=== PATIENT | female | born 1940 | race Caucasian/White ===

== ENCOUNTER 2019-07-16 06:05 | Inpatient (IN) | payer OTHER, SELFPAY ==
[2019-07-09 12:44] VITALS: BMI 35.2
[2019-07-16] VITALS (33 sets, daily range): BP systolic 84–143; BP diastolic 32–71; PULSE 69–85; RESP 12–18; TEMP 35.6–36.4; O2SAT 89–100; BMI 35.2
--- NOTE | 2019-07-16 | DI.RAD.S_ITS ---
PROCEDURE: XR LUMBAR SPINE 2-3V INDICATIONS: L4-5, L5-S1 TLIF TECHNIQUE: 2 views of the lumbar spine were acquired. COMPARISON: [facility], CR, XR LUMBAR SPINE FLEXION EXTENSION, 02/27/2019, 8:41. FINDINGS: 2 intraoperative fluoroscopic views of the lumbar spine demonstrate posterior fixation of L4-S1 with posterior fixation rods and bilateral pedicle screws. There are also intervertebral spacers in the L4-5 and L5-S1 disc spaces. IMPRESSION: 1. Intraoperative fluoroscopic films demonstrate posterior fusion of L4-S1. Dictated by: Jens Person M.D. on 07/16/2019 at 13:32 Approved by: Jens Person M.D. on 07/16/2019 at 13:34
[2019-07-16] MEDS: LACTATED RINGERS 1,000 ML 42 ML IV ×3 (07:15→11:38)
--- NOTE | 2019-07-16 07:25 | PM.PREOP ---
Pre-operative Note Interval Note History & Physical reviewed/Exam performed by Physician: Yes Changes to H&P: Yes H&P completed within 30 days and has changed as indicated here:: Pain has switched over to L leg, will do left sided access
--- NOTE | 2019-07-16 07:26 | PM.OP.1 ---
Operative Date/Time/Diagnoses Date of procedure: 07/16/19 Time of procedure: 13:04 Pre-op diagnosis: Lumbar stenosis with radiculopathy Lumbar spondylolisthesis Lumbar scoliosis Post-op diagnosis: same Procedure & Clinicians Procedure: L3-4, L4-5, L5-S1 laminectomies L4-5, L5-S1 TLIF (post/post interbody fusion) with cages L4, L5, S1 screws Iliac crest bone graft aspirate Use of microscope Placement of epidural catheter Same procedure as scheduled: Yes Indications: 79 year old female with intractable pain from stenosis.They had failed conservative management and requested operative intervention. Risks and benefits of surgery were discussed and appropriate consents were obtained. Surgeon: Efra Gifford Transportation Refrigeration Technician: Kelli Mariee Anesthesia Type: General Operative Notes Findings: None Closure Type: primary Specimen(s): none sent Prosthetic devices, grafts, tissues, transplants, or devices: NuVasive MAS Reline screws Globus Rise cage Applied: catheter Estimated Blood Loss (mL): 30 Procedure in detail: The patient was brought to the operating room and intubated on the table. A time-out was performed. They were then rolled over to the well-padded Jordin table in the prone position. Preoperative antibiotics were given. The back was prepped and draped in the standard sterile fashion. Using fluoroscopy, a 6 cm longitudinal incision was made to the left of the midline. We used Bovie to come down to and split the lumbodorsal fascia. Using fluoroscopy and monitoring, we then percutaneously placed Jamshidi needles down the pedicles of L4, L5, and S1 on the left side. These were changed out to guidewires and then we tapped and then placed the NuVasive MAS Reline screw shanks. We then opened up the retractors and used Bovie to clear up the posterolateral gutter as well as medially along the lamina to the spinous processes. A bur was used to decorticate the transverse process of L5 and the sacral ala. We brought in the microscope. Using a combination of bur and Kerrison rongeurs, a laminectomy was performed from the left side at L5-S1. We cleared over past the midline. We had to do a near complete facetectomy to open up the foramen. This completed the laminectomy at L5-S1. We then began the TLIF prep. A complete facetectomy was performed on this side at L5-S1 We carefully cleaned up the remainder of the foramen until we could easily retract the exiting root as well as clearing medially below the dura and expose the disc space. The disc was prepped with bipolar and then an annulotomy was performed. We performed a diskectomy using a combination of paddles, manda, pituitaries, and curettes. We distracted the disc using a paddle and locked the retractor in an open position. We then filled the disc space with Osteocel bone graft. We then placed the Globus Rise cage under fluoroscopy and then filled this in with more bone graft. The distraction on the retractor was released to compress down. This completed the posterior interbody fusion portion of the TLIF at L5S1. We then went up to the L4-5 level. The retractor blades were switched over to this and we cleared out the gutter. The L4 transverse process was decorticated. We cleared medially along the lamina. We then used a combination of bur and Kerrisons to perform complete laminectomy at the L4-5 level. This was very tight centrally and we had to carefully depress the dura to reach across and clear out the opposite side. We also cleared out the neural foramen. Please note this was separate and distinct from a standard TLIF approach as there was extensive central canal decompression required, adding much more time and caution. This completed the laminectomy at L4-5. We then took off the remainder of the facet on the left side and exposed the disc space. The dura was carefully retracted and an annulotomy was performed. We again performed a complete diskectomy. We filled the disc space with bone graft and then placed another globus Rise cage under fluoroscopy and filled in with more bone graft. This completed the posterior interbody fusion portion of the TLIF at L4-5. We then went up to L3-4. The retractor was anchored on the L4 screw and opened up. We cleared out medially and then performed a laminectomy at L34 from this side, opening up the central canal and foramen and undercutting underneath the spinous process. She did have a slight curve at this level but we are able follow the dura until we completely opened up to L2-3. In the end, everything was checked with the ball probe and was open. The retractor was removed. We then placed the screw heads, reynaldo, and locked down the set screws. The wound was copiously irrigated. A small stab incision was made over the PSIS. We used a Jamshidi needle to aspirate several mL of bone marrow from the pelvis. This was mixed with the remaining Osteocel and combined with all of the locally harvested bone graft and placed in the posterolateral gutter for the posterior fusion of the TLIF at L45 and L5S1. An epidural catheter was then placed in the spinal canal by carefully depressing the dura and advancing it 4 cm cephalad under the remaining lamina. The muscle fascia was closed. The catheter was then injected with a solution containing 4 mL of 0.5% Marcaine, 1 mg Stadol, 4 mg Duramorph, and 100 mcg of fentanyl. This was injected without resistance and the catheter was pulled. We then went to the opposite side. Again using fluoroscopy, a 3 cm incision was made and Bovie was used to come down to split the fascia. Using neural monitoring and fluoroscopy, Jamshidi needles were advanced down the pedicles of L4, L5, and S1 on the right side. These were switched over guidewires, tapped, and screws placed. We then placed a reynaldo and locked the set screws on this side. The wound was irrigated. The fascia was closed. Vancomycin powder was placed in the wounds. The superficial and skin were closed. A sterile dressing was placed. The patient was then rolled over extubated and brought to recovery room without complications. Complications: none Post-operative Condition: stable Disposition: PACU Plan for aftercare: Inpatient. Up with PT.
[2019-07-16] MEDS: CEFAZOLIN 2 GM/100 ML FROZ.PIGGY IV ×3 (08:00→20:15)
--- NOTE | 2019-07-16 08:40 | SUR.OPER ---
Prone on spine table, head in foam head support, padded chest and pelvic supports, gel pad at knees, lower legs supported by pillows; nipples, genitalia and toes free of pressure, arms secured on foam padded arm boards at <90 degrees abduction. Tape over blanket at thigh secured to table.
[2019-07-16] MEDS: THROMBIN (RECOMBINANT) 5,000 UNIT VIAL 5000 UNIT TOP (08:47)
[2019-07-16] MEDS: VANCOMYCIN 1,000 MG VIAL 1000 MG TOP (08:48)
[2019-07-16] MEDS: SODIUM CHLORIDE 0.9% 1,000 ML, GENTAMICIN 80 MG IRR (08:48)
[2019-07-16] MEDS: ACETAMINOPHEN IV 1,000 MG/100 ML VIAL 400 MG IV (09:35)
--- NOTE | 2019-07-16 09:53 | SUR.OPER ---
fsbg [address] mccracken
[2019-07-16] MEDS: BUPIVACAINE 0.5% (PF) 4 ML, MORPHINE-PF 4 MG, BUTORPHANOL 1 MG, fentaNYL 100 MCG INJ (11:56)
--- NOTE | 2019-07-16 13:42 | SUR.PHASEI ---
1325: Resp. therapy at bedside to set up pt. with BIPAP, saturations stable at 95% with BiPAP and O2 @ 3L/min.
--- NOTE | 2019-07-16 13:55 | SUR.PHASEI ---
Pt. waking up a little more; BiPAP continue's with O2 maintaining saturation 97%. Pt. denies pain at this time, checking dermatone on pt., pt. shook head no when this author asked if she (pt) could feel this author touching the side of her body, however pt able to flex/ext feet with good strength.
--- NOTE | 2019-07-16 14:19 | SUR.PHASEI ---
Notified anesthesia regarding DBP @ 39, anesthesia asked about the MAP which is 64 (good); anesthesia mentioned that the BiPAP may be causing a decrease in the pts preload. Will continue to monitor with transfer to ICU in near future
--- NOTE | 2019-07-16 14:47 | SUR.PHASEI ---
Lab here at bedside in PACU for basic panel, stat order.
--- NOTE | 2019-07-16 14:58 | SUR.PHASEI ---
1455 - anesthesia notified of b/p 103/33 and MAP @ 55; anesthesia stated that the pt. may be transferred to ICU as planned, labs have been drawn, pt. stable for transfer.
[2019-07-16 15:14] LABS: BUN Creatinine Ratio 17.5 (6-22); Blood Urea Nitrogen 21 mg/dL (7-17); Calcium 9.4 mg/dL (8.4-10.2); Carbon Dioxide 28 mmol/L (22-32); Chloride 102 mmol/L (98-107); Estimated Glomerular Filt Rate 43.2 mL/min (>60); Glucose 151 mg/dL (80-110); HEMOLYSIS 21 (0-50); Potassium 4.6 mmol/L (3.4-5.1); Sodium 137 mmol/L (137-145)
--- NOTE | 2019-07-16 15:15 | SUR.PHASEI ---
pending transfer to ICU due to change of shift, waiting for receiving RN to call PACU for report.
[2019-07-16] MEDS: LACTATED RINGERS 1,000 ML 125 ML IV (16:00)
[2019-07-16] MEDS: CELECOXIB 200 MG CAPSULE 400 MG PO (16:58)
[2019-07-16] MEDS: GABAPENTIN 600 MG TABLET PO (20:29)
[2019-07-16] MEDS: SENNOSIDES 8.6 MG TABLET 17.2 MG PO (20:29)
[2019-07-16] MEDS: DOCUSATE 100 MG CAPSULE PO (20:29)
[2019-07-16] MEDS: SIMVASTATIN 40 MG TABLET PO (20:30)
[2019-07-16] MEDS: PRAMIPEXOLE 1 MG TABLET PO (20:30)
[2019-07-16] MEDS: LATANOPROST 0.005% OPHTH 2.5 ML 1 DROPS EYE-BOTH (20:30)
[2019-07-17] VITALS (8 sets, daily range): BP systolic 91–117; BP diastolic 42–55; PULSE 66–89; RESP 16–20; TEMP 36.1–37.3; O2SAT 95–98
[2019-07-17] MEDS: LACTATED RINGERS 1,000 ML 125 ML IV (00:32)
[2019-07-17] MEDS: CEFAZOLIN 2 GM/100 ML FROZ.PIGGY IV (04:55)
[2019-07-17 05:07] LABS: Hematocrit 33.3 % (36-46); Hemoglobin 10.8 g/dL (12.0-16.0)
[2019-07-17 05:16] LABS: BUN Creatinine Ratio 16.7 (6-22); Blood Urea Nitrogen 20 mg/dL (7-17); Calcium 8.9 mg/dL (8.4-10.2); Carbon Dioxide 31 mmol/L (22-32); Chloride 101 mmol/L (98-107); Estimated Glomerular Filt Rate 43.2 mL/min (>60); Glucose 117 mg/dL (80-110); HEMOLYSIS < 15 (0-50); Potassium 4.4 mmol/L (3.4-5.1); Sodium 137 mmol/L (137-145)
[2019-07-17] MEDS: LEVOTHYROXINE 88 MCG TABLET PO (06:36)
[2019-07-17] MEDS: HYDROCODONE/ACET 5/325 TABLET 1 TAB PO ×2 (06:36→08:42)
--- NOTE | 2019-07-17 06:44 | PC.NURSE ---
On initial assessment lumbar dressing with serosanguinous drainage with old leaking noted and reported by evening shift RN. Reassessment at 0600 noted to have additional leakage and saturation. Dressing reinforced. Tolerated CPAP overnight with 5L O2 bleed in. Upon removal to take oral medications pt Sp02 noted to be 87%. Placed on NC at 2L with improvement to 90%. Titratedd up to 3LNC with adequate Sp02 93-95%. Pt without complaint.
--- NOTE | 2019-07-17 08:05 | PM.PNPO.1 ---
Subjective Subjective Date Patient Seen: 07/17/19 Time Patient Seen: 08:05 Interval history: She is doing well. No leg pain. Pain is 7/10 and left lower back when she is laying on it. Her dressing had to be reinforced overnight. Exam Vital Signs (past 8 hours): - 07/17/19 04:00 07/17/19 07:32 Temperature 96.9 F L 98.6 F Pulse Rate 89 80 Respiratory Rate 16 19 Blood Pressure 117/46 L 98/55 L Pulse Oximetry 96 98 Oxygen Delivery Method CPAP Oxygen Flow Rate 4 Const Orientation: alert and oriented x3 Back/Spine/Pelvis Other: Moderate drainage has saturated through dressing. 5/5 motor both lower extremities Objective Labs Result Diagrams: 07/17/19 04:37 07/17/19 04:37 Labs: Laboratory Results - last 24 hr 07/16/19 07/17/19 07/17/19 14:54 04:37 04:37 Hgb 10.8 L Hct 33.3 L Sodium 137 137 Potassium 4.6 4.4 Chloride 102 101 Carbon Dioxide 28 31 BUN 21 H 20 H Creatinine 1.20 H 1.20 H Estimated GFR 43.2 L 43.2 L BUN/Creatinine Ratio 17.5 16.7 Glucose 151 H 117 H Calcium 9.4 8.9 Assessment & Plan Post-op Postoperative Procedures: Procedures Operation Date: 07/16/19 07:45 Actual Procedures Side Surgeon p L3-S1 laminectomies,L4-S1 instrumented fusion w/bone graft Efra Gifford MD She is doing well. Mobilize today with physical therapy. Anticipate discharge home in the next 1-2 days. Quality VTE Deep Vein Thrombosis/Pulmonary Embolism Present on Admission: No
--- NOTE | 2019-07-17 08:28 | CM.DANOTE ---
Addendum entered by Radha Hernandez LPN 07/17/19 14:03: PT and OT notes are not yet available. Will follow up and plan to meet with pt after more is known in these initial therapy evaluations. Original Note: Discharge Planning/Care Management DCP: assessment: Case received, EMR reviewed. Pt is an 79 year old female who admitted yesterday for a planned spinal surgery. Surgeon: Dr. Gifford Payer: Janes KIRAN PCP: Izabel Stapleton PT and OT will work with pt. Pt's indicated in her pre-op assessment that her hospital d/c plan is home with her significant other Adalberto Segal's supportive assist. P: discuss in Team Rounds and then meet with pt for introduction of self and role and continued assessment process. CM Discharge Assessment Start: 07/17/19 08:26 Freq: Status: Active Protocol: Document 07/17/19 08:27 ITV (Rec: 07/17/19 08:28 ITV [id number]) Discharge Planning Assessment Advance Directives? Yes Advance Directives on File No History Provided By Medical Record Prior Living Arrangements House Household Members significant other Review Status In Process Pre-Anesthesia Assessment Start: 07/09/19 12:44 Freq: Status: Complete Protocol: Document 07/09/19 12:44 [facility] (Rec: 07/09/19 13:32 CAB [id number]) Pre-Anesthesia Assessment Patient Information Reviewed Via Phone Assessment Assessment Completed With Patient Diagnostic Results BMP/CMP,CBC,EKG,Other Comment Outside labs/EKG scanned to record Primary Care Provider Izabel Stapleton Seen Specialist in Last 12 Months Yes Specialist Seen Orthopedist Comment PCP pre-op clearance 06/17/19 scanned to record Primary Language Greenlandic Lathe Tender Required No Height 160.02 cm Weight 90.265 kg Body Mass Index (BMI) 35.2 Hearing Ability Normal Visual Assist Magnifying Glass Dentition Type Partial- Upper & Lower,Full- Upper & Lower Barriers to Learning None Other Aids No Hx Anesthesia Reactions No: JACOB, has not worn CPAP due to smelling like mold Hx Family Anesthesia Reaction No Hx Malignant Hyperthermia No Hx Blood Transfusions No Anesthesia Review Requested No alcohol intake former Smoking Status Former smoker Tobacco type cigarettes how long ago did patient quit smoking Quit Substance Use Type does not use Pain Present Pain Reported Musculoskeletal Symptoms Abnormal Gait,Back Pain,Neck Pain,Numbness History of Falling (Recent or History of Yes ) Patient is completely paralyzed or No completely immobile Prosthesis or Orthotic Device Cane,Front Wheel Walker Mental Status Oriented to own ability Is patient on oxygen? No Hx Sleep Apnea Yes: Not wearing due to smelling like mold CPAP/BIPAP use prescribed not used Currently Taking a Beta Esequiel Yes: Atenolol Can You Climb a Flight of Stairs Without Yes SOB Hx Chest Pain No Hx SOB Yes: MERINO with longer ambulation, goes to [facility] Hx Syncope or Dizziness No Anti-Coagulant Therapy No Has a Jig Box Operator No Cardiac Testing Yes: Stress, Echo 06/05/19 @ [facility] Hx Pacemaker/ICD No Pacemaker Rep Required? No Diet Type At Home Regular dysphagia No Bladder Pattern Incontinent Urinary Catheter Present No Hx Urinary Self Catheterization No Diabetes Yes: Has not been checking blood sugars at home HgbA1C 6.6 Date 05/27/19 Comment Diet controlled Patient No Lactating No Hx Drug Resistant Organism No Presence of External or Internal Medical No Devices Have you traveled outside the [facility] in the last 30 days? Marital Status / Lives With significant other Prior Living Arrangements House Support System Friend(s),Significant Other Does the Patient Have Assistance After Yes Surgery Patient Discharge Plan Description Return Home Comment Pt advised 3-4 day length of stay per surgeon Feels Safe in Current Environment Yes Been Physically Hurt or Threatened By a No Person in Current Environment Do you have thoughts of harming yourself None or others? Are you currently considering suicide? No Do you have a plan to hurt yourself or No Plan others? Do You Have Any Spiritual Beliefs That No May Affect Your HC Choices? Do You Have Any Cultural Practices That No May Affect Your HC Choices? Comment Jeanmarie Who Can We Speak to About Patient's Care Family, friends Identifying Code for Release of Patient Declines to issue Information Health Care Proxy/Next of Kin Adalberto Morin) Health Care Proxy Emergency Contact Name Adalberto Morin) Emergency Contact Advance Directives? Yes Advance Directives on File No Requested Patient Bring Advanced Yes Directives DOS PAC Instructions Durable medical equipment, Medications to take/avoid, Nasal antibiotic,No ETOH/ petroleum product on skin DOS, NPO,Post-op transportation,Pre -surgical wash,Sturdy shoes/ comfortable clothes,Do not bring valuables and remove jewelry
[2019-07-17] MEDS: GABAPENTIN 300 MG CAPSULE PO (08:41)
[2019-07-17] MEDS: LOSARTAN 50 MG TABLET 100 MG PO (08:41)
[2019-07-17] MEDS: FLUoxetine 20 MG CAPSULE PO (08:41)
[2019-07-17] MEDS: DOCUSATE 100 MG CAPSULE PO ×2 (08:41→20:55)
[2019-07-17] MEDS: ATENOLOL 25 MG TABLET PO (08:44)
[2019-07-17] MEDS: CELECOXIB 200 MG CAPSULE PO ×2 (08:44→20:56)
[2019-07-17] MEDS: CHLORTHALIDONE 25 MG TABLET PO (08:44)
--- NOTE | 2019-07-17 12:35 | PT.IPTN ---
Current Diagnoses Spondylolisthesis, lumbar region (07/16/19) Spinal stenosis, lumbar region with neurogenic claudication (07/16/19) Surgery Performed Operation Date: 07/16/19 07:45 Actual Procedures p L3-S1 laminectomies,L4-S1 instrumented fusion w/bone graft - Efra Gifford MD Physical Therapy Treatment Note M2 PT-IP Current Condition Start: 07/17/19 14:40 Freq: NEEDED Status: Active Protocol: Document 07/17/19 09:00 [facility] (Rec: 07/17/19 15:08 [facility] [id number]) Physical Therapy Current Condition Current Condition Evaluation Date 07/17/19 Treatment Diagnosis L4-5, L5-S1 TLIF Precautions Lumbar Precautions Log Roll,No Twisting,Limit Bending,Lifting Restriction of 10 lbs,Gait Belt above Incisional Area M3 PT-IP Subjective Start: 07/17/19 14:40 Freq: NEEDED Status: Active Protocol: Document 07/17/19 12:35 [facility] (Rec: 07/17/19 15:57 [facility] [email or web address]) Subjective Physical Therapy Visit Type Type Treatment Note Visit Start Time 12:17 Visit Stop Time 12:33 Total Visit Minutes 16 Number of DATA ANALYSIS INTERN Visits 1 Physical Therapy Visit Comments Patient Comments pt willing to work with therapy. Therapy Pain Assessment Pain When Pain Assessed At Rest Pain Present Pain Present Pain Reported Location lower back Intensity 6 Scale Used Numeric (1 - 10) M4 PT-IP Mobility and Gait Start: 07/17/19 14:40 Freq: NEEDED Status: Active Protocol: Document 07/17/19 12:35 [facility] (Rec: 07/17/19 15:57 [facility]GD [email or web address]) PT-Transfer Assessment Sit to and From Stand Sit to and from Stand Contact Guard Assistance Equipment Transfer Assistive Device Gait Belt,Front Wheeled Walker Orthotic/Prosthetic Devices or Brace: No Transfers Transfer Destination Chair Transfer Ability Level of Assist Minimal Assistance,Use of Upper Extremities Gait Assessment Gait Gait Assistance Required: Contact Guard Assist Distance (Feet) 50 Assistive Devices Assistive Device Gait Belt,Front Wheeled Walker Orthotic/Prosthetic Devices or Brace: No Gait Deviations General Gait Pattern Antalgic,Decreased Stride Length,Flexed Trunk Factors Limiting Gait Function Factors Limiting Gait Function Decreased Strength,Pain M5 PT-IP Objective Assessments Start: 07/17/19 14:40 Freq: NEEDED Status: Active Protocol: Document 07/17/19 09:00 LR (Rec: 07/17/19 15:08 LR [email or web address]) Orientation Orientation/Cognition Level of Alertness Alert Strength Lower Extremity Strength Assessment Right Impaired M6 PT-IP Treatment Start: 07/17/19 14:40 Freq: NEEDED Status: Active Protocol: Document 07/17/19 12:35 [facility]GD (Rec: 07/17/19 15:57 [facility]GD [email or web address]) Physical Therapy Treatment Education Education Provided Precautions M7 PT-IP Assessment and Plan Start: 07/17/19 14:40 Freq: NEEDED Status: Active Protocol: Document 07/17/19 12:35 [facility] (Rec: 07/17/19 15:57 [facility] [email or web address]) PT Summary Assessment and Plan Summary Assessment Summary Pt able to progress gait distance. She is slow moving, but improved in her step length. Pt is progressing slowly with mobility. Frequency of Treatment Frequency Of Treatment Twice a Day Treatment Plan Physical Therapy Treatment Plan Bed Mobility Training,Transfer Training,Gait Training, Therapeutic Exercise,Balance Retraining,Post Op Education, Discharge Planning, Neuromuscular Re-ed,Manual Therapy Recommendations To Nursing Amount of Assist Needed 1 Person Assist Discharge Recommendations PT Discharge Recommendations Home with Assistance, Outpatient PT
--- NOTE | 2019-07-17 15:08 | PT.IIE ---
Addendum entered and electronically signed by Cammie Henderson, PT 07/18/19 18:05: Treatment completed at 900 AM. Note time incorrect. Original Note: Current Diagnoses Spondylolisthesis, lumbar region (07/16/19) Spinal stenosis, lumbar region with neurogenic claudication (07/16/19) Surgery Performed Operation Date: 07/16/19 07:45 Actual Procedures p L3-S1 laminectomies,L4-S1 instrumented fusion w/bone graft - Efra Gifford MD Surgical History (Last Updated 07/09/19 @ 12:55 by Brina Jenkins, YANI) H/O: hysterectomy (Acute) History of bilateral carpal tunnel release (Acute ~1989) S/P epidural steroid injection (Acute 01/24/19) Medical History (Last Updated 07/09/19 @ 13:35 by Brina Jenkins RN) BCC (basal cell carcinoma) (Acute) CAD (coronary artery disease) (Acute) Depression (Acute) Diabetes (Acute) Fibroids (Acute) Former smoker (Acute) GERD (gastroesophageal reflux disease) (Acute) Glaucoma (Acute) Hidradenitis suppurativa (Acute) HLD (hyperlipidemia) (Acute) HTN (hypertension) (Acute) Hypothyroid (Acute) Left wrist fracture (Acute ~2003) Low back pain (Acute) Lumbar stenosis (Acute) Mild renal insufficiency (Acute) Myocardial infarction (Acute) JACOB on CPAP (Acute) Osteoarthritis (Acute) Pansinusitis (Acute) Physical Therapy Inpatient Evaluation/Re-Eval M1 PT/OT-IP Prior Functional Status Start: 07/17/19 14:40 Freq: NEEDED Status: Active Protocol: Document 07/17/19 09:00 [facility] (Rec: 07/17/19 15:08 [facility] [id number]) Medical Review Prior Functional Status Medical History Reviewed Yes Diet/Fluid Consistency Regular Communication WNL Mobility and Gait indep without AD except for long distances would bring cane Activities of Daily Living and IADL's indep Social History Household Members significant other Living Arrangements House Number of Floors (Floors) One Floor Number of Stairs To Enter/Railing? 4 [place] with rail Home Environment Standard Height Toilet,Walk in Shower Home Equipment Four Wheel Walker,Straight Cane,Raised Toilet Seat w/ Armrests Employment Status Retired Additional Social History Comment still works and will only have one day off and then the weekend M2 PT-IP Current Condition Start: 07/17/19 14:40 Freq: NEEDED Status: Active Protocol: Document 07/17/19 09:00 [facility] (Rec: 07/17/19 15:08 [facility] [email or web address]) Physical Therapy Current Condition Current Condition Evaluation Date 07/17/19 Treatment Diagnosis L4-5, L5-S1 TLIF Precautions Lumbar Precautions Log Roll,No Twisting,Limit Bending,Lifting Restriction of 10 lbs,Gait Belt above Incisional Area M3 PT-IP Subjective Start: 07/17/19 14:40 Freq: NEEDED Status: Active Protocol: Document 07/17/19 09:00 [facility] (Rec: 07/17/19 15:08 [facility] [email or web address]) Subjective Physical Therapy Visit Type Type Initial Evaluation Visit Start Time 08:31 Visit Stop Time 08:58 Total Visit Minutes 27 Number of SEWING MACHINE REPAIRER HELPER Visits 0 Physical Therapy Visit Comments Patient Goals Pt plans to go home when ready Therapy Pain Assessment Pain When Pain Assessed At Rest Pain Present Pain Present Pain Reported Location lower back Intensity 7 Scale Used Numeric (1 - 10) Pain Management Techniques Re-positioning M4 PT-IP Mobility and Gait Start: 07/17/19 14:40 Freq: NEEDED Status: Active Protocol: Document 07/17/19 09:00 [facility] (Rec: 07/17/19 15:08 [facility] [email or web address]) PT-Bed Mobility Assessment Rolling Type of Rolling Roll to Left Level of Assist Contact Guard Assistance Supine to Sit Supine to Sit Contact Guard Assistance, Bedrails Scooting Scooting to Edge of Bed Contact Guard Assistance PT-Transfer Assessment Sit to and From Stand Sit to and from Stand Contact Guard Assistance Equipment Transfer Assistive Device Gait Belt,Front Wheeled Walker Orthotic/Prosthetic Devices or Brace: No Comments Mobility Comments Pt was able to do bed mobility with 1 rail and stand with cueing for UE placement. Gait Assessment Gait Gait Assistance Required: Contact Guard Assist Distance (Feet) 15 Assistive Devices Assistive Device Gait Belt,Front Wheeled Walker Orthotic/Prosthetic Devices or Brace: No Gait Deviations General Gait Pattern Antalgic,Decreased Stride Length,Flexed Trunk Factors Limiting Gait Function Factors Limiting Gait Function Decreased Strength,Pain Comments Gait Comments Pt amb with small steps and made her goal to walk to the door and back, but did not feel like she could walk further PT-Balance Assessment Sitting Balance and Reactions Static Sitting Balance Ability Normal Dynamic Sitting Balance Ability Normal Standing Balance and Reactions Static Standing Balance Ability Fair Dynamic Standing Balance Ability Fair Device Used FWW M5 PT-IP Objective Assessments Start: 07/17/19 14:40 Freq: NEEDED Status: Active Protocol: Document 07/17/19 09:00 [facility] (Rec: 07/17/19 15:08 [facility] [email or web address]) Orientation Orientation/Cognition Level of Alertness Alert Strength Lower Extremity Strength Assessment Right Impaired M6 PT-IP Treatment Start: 07/17/19 14:40 Freq: NEEDED Status: Active Protocol: Document 07/17/19 09:00 [facility] (Rec: 07/17/19 15:08 [facility] [email or web address]) Physical Therapy Treatment Education Education Provided Precautions,Safety M7 PT-IP Assessment and Plan Start: 07/17/19 14:40 Freq: NEEDED Status: Active Protocol: Document 07/17/19 09:00 [facility] (Rec: 07/17/19 15:08 [facility] [email or web address]) PT Summary Assessment and Plan Potential Rehabilitation Potential Excellent Status of Condition at Evaluation Evolving Summary Impairments Pain,ROM,Strength,Balance,Bed Mobility,Transfers,Gait, Activity Tolerance Assessment Summary Pt presents post op day one after TLIF with overall decreased mobility, but pt is very motivated and was able to do all activities today with only CGA and cueing. She was limited in activity tolerance today but made goals to progress her activity this PM. Pt is likely to be able to return home after further education and cont work with PT to progress her mobility Goals Bed Mobility Goal Independent Transfer Goal Independent Gait Goal Standby Assistance Gait Distance 150ft Other Goals up/down 4 stairs with rail SBA Days to Meet Goals 4 Frequency of Treatment Frequency Of Treatment Twice a Day Treatment Plan Physical Therapy Treatment Plan Bed Mobility Training,Transfer Training,Gait Training, Therapeutic Exercise,Balance Retraining,Post Op Education, Discharge Planning, Neuromuscular Re-ed,Manual Therapy Recommendations To Nursing Amount of Assist Needed 1 Person Assist Discharge Recommendations PT Discharge Recommendations Home with Assistance, Outpatient PT
[2019-07-17] MEDS: SODIUM CHLORIDE 0.9% FLUSH 10 ML IV ×2 (15:25→20:57)
[2019-07-17] MEDS: HYDROCODONE/ACET 5/325 TABLET 2 TAB PO ×2 (15:37→20:56)
--- NOTE | 2019-07-17 18:34 | OT.IP.EVAL ---
Current Diagnoses Spondylolisthesis, lumbar region (07/16/19) Spinal stenosis, lumbar region with neurogenic claudication (07/16/19) Surgery Performed Operation Date: 07/16/19 07:45 Actual Procedures p L3-S1 laminectomies,L4-S1 instrumented fusion w/bone graft - Efra Gifford MD Past Medical History (Last Updated 07/09/19 @ 13:35 by Brina Jenkins RN) BCC (basal cell carcinoma) (Acute) CAD (coronary artery disease) (Acute) Depression (Acute) Diabetes (Acute) Fibroids (Acute) Former smoker (Acute) GERD (gastroesophageal reflux disease) (Acute) Glaucoma (Acute) Hidradenitis suppurativa (Acute) HLD (hyperlipidemia) (Acute) HTN (hypertension) (Acute) Hypothyroid (Acute) Left wrist fracture (Acute ~2003) Low back pain (Acute) Lumbar stenosis (Acute) Mild renal insufficiency (Acute) Myocardial infarction (Acute) JACOB on CPAP (Acute) Osteoarthritis (Acute) Pansinusitis (Acute) Surgical History (Last Updated 07/09/19 @ 12:55 by Brina Jenkins RN) H/O: hysterectomy (Acute) History of bilateral carpal tunnel release (Acute ~1989) S/P epidural steroid injection (Acute 01/24/19) Occupational Therapy Inpatient Evaluation/Re-Eval M1 PT/OT-IP Prior Functional Status Start: 07/17/19 18:18 Freq: NEEDED Status: Active Protocol: Document 07/17/19 14:35 [facility] (Rec: 07/17/19 18:34 [facility] [id number]) Medical Review Prior Functional Status Medical History Reviewed Yes Diet/Fluid Consistency Regular Communication WNL Mobility and Gait indep without AD except for long distances would bring cane Activities of Daily Living and IADL's indep Social History Household Members significant other Living Arrangements House Number of Floors (Floors) One Floor Number of Stairs To Enter/Railing? 4 [place] with rail Home Environment Standard Height Toilet,Walk in Shower Home Equipment Four Wheel Walker,Straight Cane,Raised Toilet Seat w/ Armrests Employment Status Retired Additional Social History Comment still works and will only have one day off and then the weekend. Pt's significant other to orange picker machine operator shower chair, RTS/BSC, and bed rail, currently they do not have the equipment yet. M2 OT-IP Current Condition Start: 07/17/19 18:18 Freq: Status: Active Protocol: Document 07/17/19 14:35 [facility] (Rec: 07/17/19 18:34 [facility] [email or web address]) Occupational Therapy Current Condition Current Condition Evaluation Date 07/17/19 Treatment Diagnosis L4-5,L5-S1 TLIF, L3-4, L4-5, l5-S1 laminectomies, l4, l5, S1 screws Diagnosis Onset Date 07/16/19 Post Operative Precautions Lumbar Precautions Log Roll,No Twisting,Limit Bending,Lifting Restriction of 10 lbs,Gait Belt above Incisional Area Weight Bearing Status Weight Bearing Status Weight Bear as Tolerated M3 OT- IP Subjective and Pain Start: 07/17/19 18:18 Freq: Status: Active Protocol: Document 07/17/19 14:35 [facility] (Rec: 07/17/19 18:34 [facility] [email or web address]) OT- Subjective Occupational Therapy Visit Type Type Initial Evaluation Visit Start Time 14:35 Visit Stop Time 15:24 Total Visit Minutes 49 Occupational Therapy Visit Comments Patient Comments Pt agreeable to get up for OT eval. Pt's daughter present for OT eval. Patient/Caregiver Goals To go home Monday. OT Pain Assessment Pain When Pain Assessed At Rest Pain Present Pain Present Denied Pain M4 OT- IP ADL's Start: 07/17/19 18:18 Freq: Status: Active Protocol: Document 07/17/19 14:35 [facility] (Rec: 07/17/19 18:34 [facility] [email or web address]) OT ADL-Grooming Comments OT Grooming Comments Pt states did so prior. OT ADL-Dressing General Eval Lower Body Dressing Ability Maximum Assistance Areas Needing Assistance Socks Assistive Devices Dressing Assistive Devices Power And Recovery Superintendent,Sock Aid Comments OT Dressing Comments Educated pt for lower body dressing equipment and now able to do with SBA for socks. OT ADL-Toileting General Evaluation Toileting Ability Maximum Assistance Areas Needing Assistance Perform Perineal Hygiene Devices Toileting Assistive Devices Commode Comments OT Toileting Comments At this time as pt able to demonstrate able to wipe from the front but unable to wipe afterwards if having a bowel movement. Pt aware may need to get a toilet paper aid or someone will have to assist her. Educated on wearing pads and looses clothing or gowns to increase ease for toileting . M5 OT- IP IADL's Start: 07/17/19 18:18 Freq: Status: Active Protocol: Document 07/17/19 14:35 [facility] (Rec: 07/17/19 18:34 [facility] [email or web address]) OT-Instrumental Activities of Daily Living Home Safety Awareness Home Safety Comments Pt's significant other to be present to assist for all IADL needs. M6 OT- IP Functional Cognition Start: 07/17/19 18:18 Freq: Status: Active Protocol: Document 07/17/19 14:35 [facility] (Rec: 07/17/19 18:34 [facility] [email or web address]) Cognitive Factors Limiting Selfcare Function Cognitive Ability Level of Alertness Alert Patient Orientation Name,Place,Situation Attention Span Ability Capable of Focused Attention, Capable of Sustained Attention Ability to Follow Commands Able to Follow Multi-Step Commands Safety Awareness Decreased Ability to Apply Precautions,Underestimates Need for Assistance Problem Solving Ability Needs Assist to Identify Solutions Cognitive Comments Cognitive Assessment Comments Pt needing vc for safety for coming to sit to stand tends not to put weight onto her legs while trying to stand up. VC to have FWW close at all times. M7 OT- IP Mobility and Balance Start: 07/17/19 18:18 Freq: Status: Active Protocol: Document 07/17/19 14:35 [facility] (Rec: 07/17/19 18:34 [facility] [email or web address]) OT- Bed Mobility Assessment Sit to Supine Sit to Supine Assist Minimal Assistance Scooting Scooting to Edge of Bed Standby Assistance OT-Transfer Assessment Sit to and From Stand Sit to and from Stand Contact Guard Assistance, Minimal Assistance Transfers Transfer Ability Contact Guard Assistance Technique Transfer Destination Bed,Bedside Commode,Chair Transfer Technique Stand Step Pivot Devices Transfer Assistive Devices Gait Belt,Front Wheeled Walker Comments Mobility Comments Pt CGA to RANDALL to come to stand however from higher surface as pt not very tall. Pt able to scoot well to get back from the edge of the bed. CGA with FWW to walk to and from the bathroom. OT- Balance Assessment Sitting Balance and Reactions Static Sitting Balance Ability Normal Dynamic Sitting Balance Ability Good Standing Balance and Reactions Static Standing Balance Ability Good M8 OT- IP Objective Assessments Start: 07/17/19 18:18 Freq: Status: Active Protocol: Document 07/17/19 14:35 [facility] (Rec: 07/17/19 18:34 [facility] [email or web address]) OT Gross Range of Motion Upper Extremity Range of Motion Assessment Within Functional Limits OT Strength Upper Extremity Strength Assessment Within Functional Limits M9 OT- IP Assessment and Plan Start: 07/17/19 18:18 Freq: Status: Active Protocol: Document 07/17/19 14:35 [facility] (Rec: 07/17/19 18:34 [facility] [email or web address]) OT Summary Assessment and Plan Potential Rehabilitation Potential Good Analytic Complexity at Evaluation Low Summary OT Impairments Balance,Functional Mobility, Dressing,Toileting,Bathing, Toilet Transfers,Shower Transfers Progress Towards Goals Progressing Toward Goals Assessment Summary Pt low complexity and main barriers are steps, bed mobility , and being able to do hygiene after toileting and at this time will need assistance. Pt has supportive family that will be with her initially for a few days before having to be alone for part of the day. Recommend home with assist , family to come for caregiver training Monday as significant other getting the day off of work. Goals Grooming Goal Independent Dressing Goal Standby Assistance Toileting Goal Moderate Assistance Bathing Goal Minimal Assistance Toilet Transfer Goal Standby Assistance Shower Transfer Goal Contact Guard Assistance Patient/Caregiver Education Goal Demonstrate Post-Op Precautions,Caregiver Independent Assisting Patient Days to Meet Goals 3 Frequency of Treatment Frequency Of Treatment Once a Day Treatment Plan OT Treatment Plan ADL Training,Functional Cognition Training,Functional Mobility,Patient/Family Education,Discharge Planning Other Treatment Recommendations and Next Shower, practice LB dressing Treatment Focus Discharge Recommendations OT Discharge Recommendations Home with Assistance Home Equipment Needs shower chair, RTS/BSC, bed rail, toilet paper aid
--- NOTE | 2019-07-17 19:53 | PC.NURSE ---
1999- Pulse oximetry 90% on room air when lying in bed. 02 at 2l cannula brings it to 96%.
[2019-07-17] MEDS: LATANOPROST 0.005% OPHTH 2.5 ML 1 DROPS EYE-BOTH (20:55)
[2019-07-17] MEDS: PRAMIPEXOLE 1 MG TABLET PO (20:56)
[2019-07-17] MEDS: SIMVASTATIN 40 MG TABLET PO (20:56)
[2019-07-17] MEDS: SENNOSIDES 8.6 MG TABLET 17.2 MG PO (20:56)
[2019-07-17] MEDS: GABAPENTIN 600 MG TABLET PO (20:56)
[2019-07-17] MEDS: HYDROMORPHONE 1 MG INJ 0.5 MG IV (23:26)
[2019-07-18] VITALS (7 sets, daily range): BP systolic 71–111; BP diastolic 38–49; PULSE 67–81; RESP 14–18; TEMP 36.2–37.4; O2SAT 90–96
[2019-07-18] MEDS: HYDROCODONE/ACET 5/325 TABLET 2 TAB PO (03:24)
[2019-07-18] MEDS: SODIUM CHLORIDE 0.9% FLUSH 10 ML IV ×2 (08:29→21:05)
[2019-07-18] MEDS: GABAPENTIN 300 MG CAPSULE PO (08:29)
[2019-07-18] MEDS: CELECOXIB 200 MG CAPSULE PO ×2 (08:29→21:03)
[2019-07-18] MEDS: DOCUSATE 100 MG CAPSULE PO ×2 (08:29→21:03)
[2019-07-18] MEDS: FLUoxetine 20 MG CAPSULE PO (08:29)
--- NOTE | 2019-07-18 08:31 | CM.DPC ---
Addendum entered by Radha Hernandez LPN 07/18/19 09:58: Case discussed in Team Rounds with ortho ASHER Richard stating he had consulted Dr. Esposito and pt with some cardiac and perhaps respiratory issues. Will be follow as POC unfolds. Original Note: DCP: continued: Met with pt as planned after review of OT/PT notes from yesterday afternoon. Introduced self and role. Pt confirms her plan at d/c is home. Her 2 daughter's have been here while she is in the hospital but will not be staying with her after she goes home. Her partner Adalberto who does work (he drives a shuttle for a local car [employer] ([employer] is taking Monday off and the weekend but she says he is also available to check on her every couple of hours. He is planning on being here today for caregiver training with the therapists and also on Monday. Pt's PLF was functional independence with only occ sp cane for long distances. She is currently on , does not use this at home. Pt has needed DME at home including a partial rail for the bed that will assist her with correct body mechanics as she recovers. P: agreed to check in and follow prn for any needs that may arise. Pt does say she feels very certain she can manage well in the home setting.
--- NOTE | 2019-07-18 08:58 | DI.RAD.S_ITS ---
PROCEDURE: XR CHEST 2V INDICATIONS: cough, SOB, r/o pneumonia. Postop spine surgery TECHNIQUE: 2 views of the chest were acquired. COMPARISON: [facility], CR, XR CHEST 2 VIEWS, 05/27/2019, 7:38. FINDINGS: Surgical changes and devices: None. Lungs and pleura: Lungs are clear. No pleural effusions or pneumothorax. There is mild central venous congestion. Mediastinum: Mediastinal contours are normal. Heart at the upper limits of normal in size. Bones and chest wall: No suspicious bony abnormalities. Soft tissues appear unremarkable. IMPRESSION: Mild central venous congestion suggesting CHF or fluid overload. Please correlate with clinical data. Dictated by: Karie Grider MD, PhD on 07/18/2019 at 8:43 Approved by: Karie Grider MD, PhD on 07/18/2019 at 8:45
--- NOTE | 2019-07-18 09:09 | P.PN_ITS ---
Subjective Subjective Date Patient Seen: 07/18/19 Time Patient Seen: 09:09 Interval history: Hospital day 3, postop day 2 following L3-4 through L5-S1 laminectomy; L4-5, L5-S1 TLIF, cage, posterior screw fixation by Dr. Gifford. She has been orthopedically stable. Has had issue of hypotension. Atenolol was held last night. Patient has been coughing with productive green sputum. Denies shortness of breath. Does have decrease O2 sat on room air at 90%. O2 sat with 2 L nasal O2 96%. She has been having oxygen with her CPAP. Patient denies is oxygen use at home. No fever chills. She has been ambulating with PT. She does anticipate discharge home when stable. Exam Vital Signs (past 8 hours): - 07/18/19 03:34 07/18/19 08:00 Temperature 97.2 F L 99.4 F Pulse Rate 75 81 Respiratory Rate 18 16 Blood Pressure 99/46 L 104/39 L Pulse Oximetry 90 L 96 Oxygen Delivery Method BiPAP Oxygen Flow Rate 2 Narrative Exam Narrative: Alert, oriented no acute distress sitting in chair. Lungs. Mild rhonchi noted. Heart. Regular rhythm without murmur. Back. Dressing does have some drainage of serosanguineous fluid. Legs. No calf pain or swelling. Pulses symmetrical. Good sensation to touch to lower legs. Objective Labs Result Diagrams: 07/17/19 04:37 07/17/19 04:37 Assessment & Plan Post-op Postoperative Procedures: Procedures Operation Date: 07/16/19 07:45 Actual Procedures Side Surgeon p L3-S1 laminectomies,L4-S1 instrumented fusion w/bone graft Efra Gifford MD Plan: Will check CBC and chest x-ray this morning. I did talk with Dr. Esposito, hospitalist, and he will see the patient to evaluate following labs and chest x- ray. Will hold chlorthalidone and losartan this morning because of hypotension. Patient will continue to work with PT. Anticipate discharge home when she is stable. Quality VTE Deep Vein Thrombosis/Pulmonary Embolism Present on Admission: No
--- NOTE | 2019-07-18 09:30 | PT.IPTN ---
Current Diagnoses Spondylolisthesis, lumbar region (07/16/19) Spinal stenosis, lumbar region with neurogenic claudication (07/16/19) Surgery Performed Operation Date: 07/16/19 07:45 Actual Procedures p L3-S1 laminectomies,L4-S1 instrumented fusion w/bone graft - Efra Gifford MD Physical Therapy Treatment Note M2 PT-IP Current Condition Start: 07/17/19 14:40 Freq: NEEDED Status: Active Protocol: Document 07/17/19 09:00 [facility] (Rec: 07/17/19 15:08 [facility] [email or web address]) Physical Therapy Current Condition Current Condition Evaluation Date 07/17/19 Treatment Diagnosis L4-5, L5-S1 TLIF Precautions Lumbar Precautions Log Roll,No Twisting,Limit Bending,Lifting Restriction of 10 lbs,Gait Belt above Incisional Area M3 PT-IP Subjective Start: 07/17/19 14:40 Freq: NEEDED Status: Active Protocol: Document 07/18/19 09:30 [facility] (Rec: 07/18/19 10:13 [facility] [email or web address]) Subjective Physical Therapy Visit Type Type Treatment Note Visit Start Time 09:09 Visit Stop Time 09:32 Total Visit Minutes 23 Number of ROLLOUT MANAGER Visits 2 Physical Therapy Visit Comments Patient Comments Pt willing to work with [facility]. Therapy Pain Assessment Pain When Pain Assessed At Rest Pain Present Pain Present Pain Reported M4 PT-IP Mobility and Gait Start: 07/17/19 14:40 Freq: NEEDED Status: Active Protocol: Document 07/18/19 09:30 [facility] (Rec: 07/18/19 10:13 [facility] [email or web address]) PT-Transfer Assessment Sit to and From Stand Sit to and from Stand Contact Guard Assistance Equipment Transfer Assistive Device Gait Belt,Front Wheeled Walker Orthotic/Prosthetic Devices or Brace: No Transfers Transfer Destination Chair Transfer Ability Level of Assist Minimal Assistance,Use of Upper Extremities Comments Mobility Comments needed mod cues for hand placement. Gait Assessment Gait Gait Assistance Required: Contact Guard Assist Distance (Feet) 100 Assistive Devices Assistive Device Gait Belt,Front Wheeled Walker Orthotic/Prosthetic Devices or Brace: No Gait Deviations General Gait Pattern Antalgic,Decreased Stride Length,Decreased Feet Clearance,Step-to Gait Factors Limiting Gait Function Factors Limiting Gait Function Decreased Strength,Pain Comments Gait Comments needed cues for step length and standing posture. O2 with activity 90-92% on 2L. M5 PT-IP Objective Assessments Start: 07/17/19 14:40 Freq: NEEDED Status: Active Protocol: Document 07/17/19 09:00 [facility] (Rec: 07/17/19 15:08 [facility] [email or web address]) Orientation Orientation/Cognition Level of Alertness Alert Strength Lower Extremity Strength Assessment Right Impaired M6 PT-IP Treatment Start: 07/17/19 14:40 Freq: NEEDED Status: Active Protocol: Document 07/17/19 12:35 [facility] (Rec: 07/17/19 15:57 [facility] [email or web address]) Physical Therapy Treatment Education Education Provided Precautions M7 PT-IP Assessment and Plan Start: 07/17/19 14:40 Freq: NEEDED Status: Active Protocol: Document 07/18/19 09:30 [facility] (Rec: 07/18/19 10:13 [facility] [email or web address]) PT Summary Assessment and Plan Summary Assessment Summary Pt able to progress gait distance. She had a posterior lean with stand and gait posture. She had a LOB backwards with back up to chair. Pt need assist for safety and balance. Frequency of Treatment Frequency Of Treatment Twice a Day Recommendations To Nursing Amount of Assist Needed 1 Person Assist Discharge Recommendations PT Discharge Recommendations Home with Assistance, Outpatient PT
[2019-07-18 10:07] LABS: Add Manual Diff / Slide Review NO; Basophils Absolute Auto 0 /uL (0-100); Basophils Percent Auto 0.3 % (0-2); Eosinophils Absolute Auto 900 /uL (0-450); Eosinophils Percent Auto 7.9 % (2-4); Hemoglobin 10.2 g/dL (12.0-16.0); Lymphocytes Absolute Auto 1300 /uL (1100-4500); Lymphocytes Percent Auto 11.2 % (25-40); Mean Corpuscular Hemoglobin 29.1 PG (26-34); Mean Corpuscular Volume 90.8 fL (80-100); Monocytes Absolute Auto 900 /uL (0-900); Monocytes Percent Auto 7.8 % (3-14); Neutrophils Absolute Auto 8500 /uL (1500-7000); Neutrophils Percent Auto 72.8 % (50-75); Platelet Count 207 X10^3/uL (150-400); Red Blood Cell Count 3.52 X10^6/uL (4.0-5.2); Red Cell Distribution Width 14.9 % (11.6-14.8); White Blood Cell Count 11.7 X10^3/uL (4.5-11.0)
--- NOTE | 2019-07-18 10:11 | PC.NURSE ---
Addendum entered by Efrain Nicole R.N. 07/18/19 15:17: Pt unable to void this shift post patino catheter d/c. Bladder scan showed [address] Esposito. Instructs to wait and monitor. Addendum entered by Efrain Nicole R.N. 07/18/19 14:50: Dsg to back changed at 1330. Incisions well approximated with sutures. Cleansed skin emily incisions with SNS, patted dry, applied coversite dsg. Pt tolerated well. Addendum entered by Efrain Nicole R.N. 07/18/19 12:32: 1200- Pt with continued hypotension despite holding AM meds. Pt is AO x3 and denying symptoms of dizziness, lightheadedness, mental status change. Dr. Esposito notified and assessed pt at bedside. VORB to hold IV lasix for now. Checked manual cuff pressure with pt supine. BP 70/35. Dr. Esposito aware and instructed to continue to monitor. Original Note: Ortho PA rounded approx 0830. Reported trending low BPs, productive cough with green sputum, pt requiring 2L NC while awake r/t to RA SPO2 84%, requiring 2L bleed in with CPAP overnight, pt does not normally require O2, dsg to back loose with some scant sang drainage. Requested clarification regarding mult HTN meds due given low BP. Orders received to hold losartan and chlorthalidone, and to give atenolol; CBC and CXR; change dsg to coversite; and hospitalist consult. Spoke with Dr. Esposito. Reported assessment findings. Orders received to hold atenolol. Pt denies chest pain, dizziness, lightheadedness, and shortness of breath. Educated to use of IS. Pt provided return demo and verbalized understanding. Call light in easy reach.
--- NOTE | 2019-07-18 10:41 | P.CONS_ITS ---
History of Present Illness Consult details Date Patient Seen: 07/18/19 Time Patient Seen: 10:43 Chief complaint: Translaminar Interbody Fusion/:Laminotomy Reason for consult: Hypoxia Requesting provider: Emiliano Richard Narrative: Ms. Muleln is an 79-year-old female with past medical history of hypertension, CAD, hyperlipidemia, type 2 diabetes (diet controlled, A1c 6.6%), and JACOB who is now postoperative day 2 after L4-5 and L5-S1 lumbar fusion with L3-S1 laminectomies. This morning she developed worsening cough and was hypoxic on room air to 84% and required 2 L nasal cannula via her CPAP and Medicine was consulted. She denies any dyspnea on exertion, and currently feels fairly well except for her cough which has been productive of green sputum. The cough started this morning. She has had a cough for the past few weeks as well, however this improved prior to her surgery but reappeared today. She complains of eye bruising sensation on the left side of her chest after a lift was used to move her, and she denies any radiation of this pain into the neck, arm or jaw. The pain is worse with palpation as well. She denies any fevers, chills, nasal congestion, nausea, vomiting, abdominal pain, dysuria. She complains of low back pain, and slight neck pain while resting in bed. She ambulated with physical therapy this morning to her hospital room door, and did not feel short of breath however this was with minimal exertion. Initial evaluation included a CBC, her white blood cell count was 11.7 hemoglobin is fairly stable at 10.2. EKG was ordered and appears unchanged compared to prior study which is scanned into the chart. Chest x-ray shows bilateral congestion consistent with possible fluid overload. BNP was 200, Cr was 1.5 (from baseline of 1.1 - 1.2), and troponin is currently pending. [facility] Medical History (Updated 07/09/19 @ 13:35 by Brina Jenkins RN) BCC (basal cell carcinoma) (Acute) CAD (coronary artery disease) (Acute) Depression (Acute) Diabetes (Acute) Fibroids (Acute) Former smoker (Acute) GERD (gastroesophageal reflux disease) (Acute) Glaucoma (Acute) Hidradenitis suppurativa (Acute) HLD (hyperlipidemia) (Acute) HTN (hypertension) (Acute) Hypothyroid (Acute) Left wrist fracture (Acute ~2003) Low back pain (Acute) Lumbar stenosis (Acute) Mild renal insufficiency (Acute) Myocardial infarction (Acute) JACOB on CPAP (Acute) Osteoarthritis (Acute) Pansinusitis (Acute) Surgical History (Updated 07/09/19 @ 12:55 by Brina Jenkins RN) H/O: hysterectomy (Acute) History of bilateral carpal tunnel release (Acute ~1989) S/P epidural steroid injection (Acute 01/24/19) Social History household members: significant other Smoking Status: Former smoker alcohol intake: former Social History household members: significant other Smoking Status: Former smoker alcohol intake: former Meds Home Medications and Allergies Home Medications Medication Instructions Recorded Confirmed Type atenolol 25 mg PO BID 07/09/19 07/16/19 History chlorthalidone 25 mg PO DAILY 07/09/19 07/16/19 History fluoxetine 20 mg PO DAILY 07/09/19 07/16/19 History gabapentin 900 mg PO SEEINSTR 07/09/19 07/16/19 History latanoprost 1 drp EYE-BOTH BEDTIME 07/09/19 07/16/19 History levothyroxine 88 mcg PO DAILY 07/09/19 07/16/19 History losartan 100 mg PO DAILY 07/09/19 07/16/19 History pramipexole 1 mg PO BEDTIME 07/09/19 07/16/19 History simvastatin 40 mg PO BEDTIME 07/09/19 07/16/19 History celecoxib [Celebrex] 200 mg PO BID PRN #60 cap 07/17/19 Rx docusate sodium [Dulcolax Stool 100 mg PO BID PRN #40 cap NS 07/17/19 Rx Softener (dss)] hydrocodone-acetaminophen 1 tab PO Q4HR PRN #30 tab 07/17/19 Rx hydroxyzine pamoate 25 mg PO Q4HR PRN #20 cap 07/17/19 Rx Allergies Allergy/AdvReac Type Severity Reaction Status Date / Time adhesive tape Allergy Severe Rash if Verified 07/09/19 13:11 left on too long clonidine Allergy Mild Rash from Verified 07/09/19 13:11 patch cloxacillin Allergy Itching Verified 07/09/19 12:56 tapentadol Allergy Verified 07/09/19 12:56 ciprofloxacin AdvReac Nausea Verified 07/09/19 12:56 lisinopril AdvReac Cough Verified 07/09/19 12:56 Review of Systems Review of Systems Narrative: All other systems reviewed with the patient and are negative unless otherwise stated. Exam Vital Signs (past 8 hours): - 07/18/19 03:34 07/18/19 08:00 Temperature 97.2 F L 99.4 F Pulse Rate 75 81 Respiratory Rate 18 16 Blood Pressure 99/46 L 104/39 L Pulse Oximetry 90 L 96 Oxygen Delivery Method Room Air,Nasal Cannula Oxygen Flow Rate 2 Narrative Exam Narrative: GENERAL APPEARANCE: Well developed, well nourished, in no acute distress. SKIN: Inspection of the skin reveals no rashes, ulcerations or petechiae. HEENT: The sclerae were anicteric and conjunctivae were pink and moist. Extraocular movements were intact and pupils were equal, round with normal accommodation. External inspection of the ears and nose showed no scars, lesions, or masses. Lips, teeth, and gums showed normal mucosa. The oral mucosa, hard and soft palate, tongue and posterior pharynx were unremarkable. NECK: Supple and symmetric. There was no thyroid enlargement, and no tenderness, or masses were felt. CHEST: Normal AP diameter and normal contour without any kyphoscoliosis. Tenderness with palpation to the left anterior chest LUNGS: Auscultation of the lungs revealed decreased breath sounds bilateral lung bases however she did have poor effort. There were mild expiratory wheezes over the R middle lung hopkins that improved with cough. CARDIOVASCULAR: There was a regular rate and rhythm without any murmurs, gallops, rubs. Peripheral pulses were 2+ and symmetric. ABDOMEN: Soft and nontender with normal bowel sounds. No ascites was noted. MUSCULOSKELETAL: There was no tenderness or effusions noted. Muscle strength and tone were normal. EXTREMITIES: No cyanosis, clubbing. Minimal LE non-pitting edema. NEUROLOGIC: Alert and oriented x 3. Normal affect. Gait was normal. Strength is +5/5 in the Upper Extremities and Lower Extremities Bilaterally. Sensation to touch was normal. Objective Labs Result Diagrams: 07/18/19 10:00 07/18/19 10:42 Labs: Laboratory Results - last 24 hr 07/18/19 10:00 WBC 11.7 H RBC 3.52 L Hgb 10.2 L Hct 32.0 L MCV 90.8 MCH 29.1 MCHC 32.0 RDW 14.9 H Plt Count 207 Neut % (Auto) 72.8 Lymph % (Auto) 11.2 L [place] % (Auto) 7.8 Eos % (Auto) 7.9 H Baso % (Auto) 0.3 Neut # (Auto) 8500 H Lymph # (Auto) 1300 [place] # (Auto) 900 Eos # (Auto) 900 H Baso # (Auto) 0 Assessment & Plan Assessment & Plan narrative: Ms. Mullen is an 79-year-old female with past medical history of hypertension, CAD, hyperlipidemia, type 2 diabetes (diet controlled, A1c 6.6%), hypothyroidism and JACOB who is now postoperative day 2 after L4-5 and L5-S1 lumbar fusion with L3-S1 laminectomies. This morning she developed worsening cough and was hypoxic on room air to 84% and required 2 L nasal cannula via her CPAP and Medicine was consulted. 1. Acute hypoxemic respiratory failure -likely secondary to volume overload and diastolic dysfunction. According to her primary care notes which are scanned into the computer she previously had an echo in February of 2019 which was unremarkable. She had a stress test in May which showed an apical defect consistent with prior RI, this is consistent with her EKG findings as well. She is, given this history, high risk for postoperative RI and although there is chest pain that is reproducible and her EKG is unchanged from prior exams we will check a troponin level. Differential also includes atelectasis, less likely infectious etiology including pneumonia, less likely PE given clinical situation and 2 weeks of cough, obesity hypoventilation syndrome possibly worsened in setting of recent surgery. - limited TTE ordered, BNP indeterminant at 200. - will trial one dose of 20 mg of IV lasix to see if improvement in symptoms - troponin level pending - Check TSH given history of hypothyroidism and unknown control. - incentive spirometry - telemetry - O2 as needed to maintain 90% - if no improvement consider CTA 2. DWAYNE - Cr of 1.5 on CMP with baseline of around 1.1-1.2, possibly secondary to volume overload and congestion. - continue to monitor - treatment as noted above - see workup for respiratory failure as above 3. CAD, chronic - patient has previous RI documented on stress testing with a fixed apical defect noted earlier this year, no prior LHC. Previous TTE in feb, 2019 showed normal systolic and grade II diastolic dysfunction (pseudonormalization pattern). - continue simvastatin 40 mg - start ASA 81 mg as soon as able post operatively as recommended by PMD per chart review. 4. CHFpEF, possibly with acute exacerbation / decompensation - Previous TTE 02/2019 showing pseudonormalization pattern. Pending further workup to determine if there is current decompensation. - lasix as noted above - see evaluation noted in problem 1. 5. HTN, chronic - patient is currently low normal BP, medications were held this morning. - hold atenolol, consider changing to metoprolol pending limited TTE if EF is reduced. - hold losartan today, resume at lower dosing 25-50 mg if BP becomes elevated >140 consistently. 6. hypothyroidism, chronic - check TSH - Continue levothyroxine 88 mcg. DVT: per primary team Pain control per primary team Code: [employer] Spent With Patient Time with patient: Greater than 35 minutes
--- NOTE | 2019-07-18 11:00 | DI.ECHO.S_ITS ---
[place] [facility]---------+ [facility] +---------+ : : [address] [place] [place] : : : : [id number] : : : : Phone: [phone]+ Echocardiogram Report + + :Name: ANTONIA ALVARES Study Date: 07/18/2019 Height: 63 in : :[facility] Exam Location: [facility] Weight: 199 lb : : Gender: Female BSA: 1.9 m2 : :: 1940 Age: 79 yrs BP: 104/39 mmHg: :Reason For Study: HEART FAILURE : : Performed By: Chriss Lal : :Referring: MIRA DOUGLAS : + + Interpretation Summary Left ventricular wall thickness is mildly increased. Left ventricular ejection fraction is estimated to be 70 +/- 5%. There are no focal wall motion abnormalities. Procedure: A limited 2D echocardiogram was performed to assess for CHF. The study quality was technically adequate. Comparison is made with the echocardiogram of 03/07/19. The patient was in normal sinus rhythm during the exam. Left Ventricle: The left ventricle is normal in size. Left ventricular wall thickness is mildly increased. Left ventricular ejection fraction is estimated to be 70 +/- 5%. There are no focal wall motion abnormalities. Right Ventricle: The right ventricular systolic function is normal. Mitral Valve: There is moderate to severe mitral annular calcification. Great Vessels: The ascending aorta is normal in size. MMode/2D Measurements & Calculations LVIDd: 5.1 cm asc Aorta Diam: 3.0 cm LVIDs: 3.4 cm FS: 33.9 % IVSd: 1.1 cm LVPWd: 1.1 cm LV treadwell. diameter/BSA (cm/m^2): 2.6 LV sys. diameter/BSA (cm/m^2): 1.7 IVC diam: 2.6 cm Reading Physician:01:05 PM
[2019-07-18 11:06] LABS: Alanine Aminotransferase 22 IU/L (9-52); Albumin 3.2 g/dL (3.5-5.0); Albumin Globulin Ratio 1.1 (1.0-2.8); Alkaline Phosphatase 73 U/L (38-126); Aspartate Aminotransferase 111 IU/L (14-36); Bilirubin Total 0.4 mg/dL (0.2-1.3); Blood Urea Nitrogen 30 mg/dL (7-17); Calcium 8.6 mg/dL (8.4-10.2); Carbon Dioxide 30 mmol/L (22-32); Chloride 98 mmol/L (98-107); Estimated Glomerular Filt Rate 33.4 mL/min (>60); Globulin 2.9 g/dL (1.7-4.1); Glucose 138 mg/dL (80-110); HEMOLYSIS < 15 (0-50); Potassium 3.9 mmol/L (3.4-5.1); Sodium 135 mmol/L (137-145); Total Protein 6.1 g/dL (6.3-8.2)
[2019-07-18 11:14] LABS: B Type Natriuretic Peptide 200 (<100)
[2019-07-18 11:44] LABS: Troponin I 0.126 ng/mL (0.01-0.034)
--- NOTE | 2019-07-18 14:50 | PT.IPTN ---
Current Diagnoses Spondylolisthesis, lumbar region (07/16/19) Spinal stenosis, lumbar region with neurogenic claudication (07/16/19) Surgery Performed Operation Date: 07/16/19 07:45 Actual Procedures p L3-S1 laminectomies,L4-S1 instrumented fusion w/bone graft - Efra Gifford MD Physical Therapy Treatment Note M2 PT-IP Current Condition Start: 07/17/19 14:40 Freq: NEEDED Status: Active Protocol: Document 07/17/19 09:00 [facility] (Rec: 07/17/19 15:08 [facility] [id number]) Physical Therapy Current Condition Current Condition Evaluation Date 07/17/19 Treatment Diagnosis L4-5, L5-S1 TLIF Precautions Lumbar Precautions Log Roll,No Twisting,Limit Bending,Lifting Restriction of 10 lbs,Gait Belt above Incisional Area M3 PT-IP Subjective Start: 07/17/19 14:40 Freq: NEEDED Status: Active Protocol: Document 07/18/19 14:50 SP (Rec: 07/18/19 15:29 SP [id number]) Subjective Physical Therapy Visit Type Type Treatment Note Visit Start Time 14:25 Visit Stop Time 14:50 Total Visit Minutes 25 Notes Primary focus on stair mgt and gait. 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 Patient Goals Pt wants to try stair management for home navigation . M4 PT-IP Mobility and Gait Start: 07/17/19 14:40 Freq: NEEDED Status: Active Protocol: Document 07/18/19 14:50 SP (Rec: 07/18/19 15:29 SP [id number]) PT-Transfer Assessment Sit to and From Stand Sit to and from Stand Contact Guard Assistance,Use of Upper Extremities Equipment Transfer Assistive Device Front Wheeled Walker Orthotic/Prosthetic Devices or Brace: No Transfers Transfer Destination Wheelchair Transfer Technique Stand Pivot Transfer Ability Level of Assist Contact Guard Assistance,Use of Upper Extremities Comments Mobility Comments needed mod cues for hand placement and spacial awareness backing up to w/c. Gait Assessment Gait Gait Assistance Required: Contact Guard Assist Distance (Feet) 130 Assistive Devices Assistive Device Gait Belt,Front Wheeled Walker Orthotic/Prosthetic Devices or Brace: No Gait Deviations General Gait Pattern Antalgic,Decreased Stride Length,Decreased Feet Clearance,Step-to Gait Factors Limiting Gait Function Factors Limiting Gait Function Decreased Sensation,Decreased Strength,Incoordination,Pain, Poor Safety Awareness, Respiratory Distress Comments Gait Comments needed cues for step length and standing posture. O2 with activity 90-92% on 2L. Noted R knee buckling during gait requiring min A for wt shift onto LLE. Educated patient and family for fall prevention. Stair Climbing Assessment Evaluation Level of Assist On Stairs Minimal Assistance,2 Person Assistance Devices Stair Climbing Assistive Devices Left Railing,Right Railing Technique/Endurance Stair Climbing Direction Ascend and Descend Stair Climbing Technique Step to Step Number of Steps Climbed 3 Stair Climbing Set # Repetitions (reps) 1 Comments Stair Climbing Comments Educated patient on posture, requires strong BUE for WB on B HRs but has only L HR at home. M5 PT-IP Objective Assessments Start: 07/17/19 14:40 Freq: NEEDED Status: Active Protocol: Document 07/17/19 09:00 [facility] (Rec: 07/17/19 15:08 [facility] [email or web address]) Orientation Orientation/Cognition Level of Alertness Alert Strength Lower Extremity Strength Assessment Right Impaired M6 PT-IP Treatment Start: 07/17/19 14:40 Freq: NEEDED Status: Active Protocol: Document 07/17/19 12:35 [facility] (Rec: 07/17/19 15:57 [facility] [id number]) Physical Therapy Treatment Education Education Provided Precautions M7 PT-IP Assessment and Plan Start: 07/17/19 14:40 Freq: NEEDED Status: Active Protocol: Document 07/18/19 14:50 SP (Rec: 07/18/19 15:29 SP [id number]) PT Summary Assessment and Plan Summary Assessment Summary Pt able to progress gait distance. She has posterior lean with standing and gait posture, LOB x4 during transfers. Pt required support on balance and educated on safety awareness of obstacles during during transfers and gait. Frequency of Treatment Frequency Of Treatment Twice a Day Treatment Plan Physical Therapy Treatment Plan Bed Mobility Training,Transfer Training,Gait Training, Therapeutic Exercise,Balance Retraining,Post Op Education, Discharge Planning, Neuromuscular Re-ed,Manual Therapy Recommendations To Nursing Amount of Assist Needed 1 Person Assist Discharge Recommendations PT Discharge Recommendations Home with Assistance, Outpatient PT
--- NOTE | 2019-07-18 17:23 | OT.IP.TRT ---
Current Diagnoses Spondylolisthesis, lumbar region (07/16/19) Spinal stenosis, lumbar region with neurogenic claudication (07/16/19) Surgery Performed Operation Date: 07/16/19 07:45 Actual Procedures p L3-S1 laminectomies,L4-S1 instrumented fusion w/bone graft - Efra Gifford MD Occupational Therapy Treatment Note M2 OT-IP Current Condition Start: 07/17/19 18:18 Freq: Status: Active Protocol: Document 07/17/19 14:35 [facility] (Rec: 07/17/19 18:34 [facility] [id number]) Occupational Therapy Current Condition Current Condition Evaluation Date 07/17/19 Treatment Diagnosis L4-5,L5-S1 TLIF, L3-4, L4-5, l5-S1 laminectomies, l4, l5, S1 screws Diagnosis Onset Date 07/16/19 Post Operative Precautions Lumbar Precautions Log Roll,No Twisting,Limit Bending,Lifting Restriction of 10 lbs,Gait Belt above Incisional Area Weight Bearing Status Weight Bearing Status Weight Bear as Tolerated M3 OT- IP Subjective and Pain Start: 07/17/19 18:18 Freq: Status: Active Protocol: Document 07/18/19 16:35 [facility] (Rec: 07/18/19 17:23 [facility] [id number]) OT- Subjective Occupational Therapy Visit Type Type Treatment Note Visit Start Time 13:27 Visit Stop Time 14:15 Total Visit Minutes 48 Occupational Therapy Visit Comments Patient Comments Pt's and daughters in for caregiver training. Patient/Caregiver Goals Pt wants to go home. OT Pain Assessment Pain When Pain Assessed At Rest Pain Present Pain Present Denied Pain M4 OT- IP ADL's Start: 07/17/19 18:18 Freq: Status: Active Protocol: Document 07/18/19 16:35 [facility] (Rec: 07/18/19 17:23 [facility] [id number]) OT ADL-Toileting General Evaluation Toileting Ability Maximum Assistance Areas Needing Assistance Perform Perineal Hygiene Devices Toileting Assistive Devices Commode Comments OT Toileting Comments Pt will be needing assist for pericare needs after bowel movement. Pt not able to urinate , but able to assist her to get onto the toilet.with gait belt and CGA. OT ADL-Bathing Comments OT Bathing Comments Pt has been having low BP , however not symptomatic 91/44 and now on 2L of O2. Pt wanting to focus on family training for stairs and to shower later or tomorrow. M5 OT- IP IADL's Start: 07/17/19 18:18 Freq: Status: Active Protocol: Document 07/17/19 14:35 [facility] (Rec: 07/17/19 18:34 [facility] [id number]) OT-Instrumental Activities of Daily Living Home Safety Awareness Home Safety Comments Pt's significant other to be present to assist for all IADL needs. M6 OT- IP Functional Cognition Start: 07/17/19 18:18 Freq: Status: Active Protocol: Document 07/18/19 16:35 [facility] (Rec: 07/18/19 17:23 [facility] [id number]) Cognitive Factors Limiting Selfcare Function Cognitive Ability Level of Alertness Alert Patient Orientation Name,Place,Situation Attention Span Ability Capable of Focused Attention, Capable of Sustained Attention Ability to Follow Commands Able to Follow Multi-Step Commands Safety Awareness Decreased Ability to Apply Precautions,Underestimates Need for Assistance Problem Solving Ability Needs Assist to Identify Solutions Cognitive Comments Cognitive Assessment Comments Pt has decreased safety awareness in conjunction of decreased ability to feel her feet. Pt not aware that her weight is on the back of her heels and having loss of balance while standing at the toilet and needing to prevent from falling. M7 OT- IP Mobility and Balance Start: 07/17/19 18:18 Freq: Status: Active Protocol: Document 07/18/19 16:35 [facility] (Rec: 07/18/19 17:23 [facility] [id number]) OT- Bed Mobility Assessment Rolling Type of Rolling Roll to Left Level of Assistance Standby Assistance Supine to Sit Supine to Sit Assist Standby Assistance,Bedrails Sit to Supine Sit to Supine Assist Standby Assistance,Bedrails Scooting Scooting to Edge of Bed Standby Assistance,Bedrails OT-Transfer Assessment Sit to and From Stand Sit to and from Stand Standby Assistance,Contact Guard Assistance,1 Person Assistance Transfers Transfer Ability Standby Assistance,Contact Guard Assistance,Moderate Assistance,1 Person Assistance Technique Transfer Destination Bed,Chair,Toilet Transfer Technique Stand Step Pivot Devices Transfer Assistive Devices Gait Belt,Front Wheeled Walker Comments Mobility Comments Pt able to do bed mobilty with SBA and use of bed rail as needed with good safety. Pt even able to get back into high bed like at home with SBA . Pt had 3 loss of balance while up on her feet, and tends to have weight on the back of her heels and not aware of change in balance and therefore loss of balance and needing therapist MODA to prevent her from falling backwards. OT- Balance Assessment Sitting Balance and Reactions Static Sitting Balance Ability Normal Dynamic Sitting Balance Ability Good Standing Balance and Reactions Static Standing Balance Ability Fair Dynamic Standing Balance Ability Poor Comments Other Balance Tests/Deviations/Treatment Pt's balance is poor and decreased awareness to correct her balance due to decreased sensation/proprioceptors in her ankles/feet to be able to adjust to prevent from falling. Pt is a high fall risk. Pt states has had several falls in the past 3 months. M8 OT- IP Objective Assessments Start: 07/17/19 18:18 Freq: Status: Active Protocol: Document 07/17/19 14:35 [facility] (Rec: 07/17/19 18:34 [facility] [id number]) OT Gross Range of Motion Upper Extremity Range of Motion Assessment Within Functional Limits OT Strength Upper Extremity Strength Assessment Within Functional Limits M9 OT- IP Assessment and Plan Start: 07/17/19 18:18 Freq: Status: Active Protocol: Document 07/18/19 16:35 [facility] (Rec: 07/18/19 17:23 [facility] [id number]) OT Summary Assessment and Plan Potential Rehabilitation Potential Good Analytic Complexity at Evaluation Low Summary OT Impairments Balance,Functional Mobility, Dressing,Toileting,Bathing, Toilet Transfers,Shower Transfers Progress Towards Goals Progressing Toward Goals,Slow Progress due to Activity Tolerance Assessment Summary Pt now on 2l of O2 and with exertion of walking to the bathroom , O2 drops to 88%,on RA pt drops to 84%. If needing O2 at home would further increase her risk for falls. Pt would benefit from 24/7 assist at home otherwise would benefit from skilled rehab to help improve overall endurance and balance strategies to help prevent from falling. Goals Grooming Goal Independent Dressing Goal Standby Assistance Toileting Goal Moderate Assistance Bathing Goal Minimal Assistance Toilet Transfer Goal Standby Assistance Shower Transfer Goal Contact Guard Assistance Patient/Caregiver Education Goal Demonstrate Post-Op Precautions,Caregiver Independent Assisting Patient Days to Meet Goals 3 Frequency of Treatment Frequency Of Treatment Once a Day Treatment Plan OT Treatment Plan ADL Training,Functional Cognition Training,Functional Mobility,Patient/Family Education,Discharge Planning Other Treatment Recommendations and Next Shower, practice LB dressing Treatment Focus Discharge Recommendations OT Discharge Recommendations Home with 24/7 Assist,SNF Rehab Other Discharge Recommendations Recommend Skilled rehab, otherwise 24/7 assist. Pt's not available as he works. Home Equipment Needs shower chair, RTS/BSC, bed rail, toilet paper aid
[2019-07-18 18:19] LABS: Troponin I 0.095 ng/mL (0.01-0.034)
--- NOTE | 2019-07-18 18:27 | PC.NURSE ---
Addendum entered by Kendy Nichole R.N. 07/18/19 22:15: 2110 - Pt reports she is not yet ready to sleep. Declining C-pap at this time. Discussion of home machine pt reports smells of mold. RT notified to assist pt in contacting servicing agency for new mask and machine evaluation. Pt reports pain 3 of 10, requesting 1 tab hydrocodone. Able to take HS meds without difficulty. Positioned for comfort. SCD's in place. Call light in reach. Bed alarm on. Original Note: 1800 - Pt up to the bathroom. 1 unmeasured void. Ambulate in halls. Mildly unsteady gait. Pt denies pain. O2 sats on RA 88%, replaced NC on 2L. Productive cough. Reinforced IS use. Positioned for comfort. Call light in reach. Supportive family at bedside.
[2019-07-18] MEDS: GABAPENTIN 600 MG TABLET PO (21:03)
[2019-07-18] MEDS: LEVOTHYROXINE 88 MCG TABLET PO (21:04)
[2019-07-18] MEDS: HYDROCODONE/ACET 5/325 TABLET 1 TAB PO (21:04)
[2019-07-18] MEDS: PRAMIPEXOLE 1 MG TABLET PO (21:04)
[2019-07-18] MEDS: LATANOPROST 0.005% OPHTH 2.5 ML 1 DROPS EYE-BOTH (21:05)
[2019-07-18] MEDS: SIMVASTATIN 40 MG TABLET PO (21:06)
[2019-07-18] MEDS: SENNOSIDES 8.6 MG TABLET 17.2 MG PO (21:06)
[2019-07-19 00:27] VITALS: BP 116/55; PULSE 73; RESP 16; TEMP 36.6; O2SAT 92
[2019-07-19 04:00] VITALS: BP 113/60; PULSE 73; RESP 16; TEMP 36.4; O2SAT 96
[2019-07-19 04:59] LABS: Add Manual Diff / Slide Review NO; Basophils Absolute Auto 100 /uL (0-100); Basophils Percent Auto 0.8 % (0-2); Eosinophils Absolute Auto 1000 /uL (0-450); Eosinophils Percent Auto 9.6 % (2-4); Hematocrit 29.3 % (36-46); Hemoglobin 9.8 g/dL (12.0-16.0); Lymphocytes Absolute Auto 1600 /uL (1100-4500); Lymphocytes Percent Auto 15.6 % (25-40); Mean Corpuscular HGB Conc 33.3 % (30-36); Mean Corpuscular Volume 90.1 fL (80-100); Monocytes Absolute Auto 800 /uL (0-900); Monocytes Percent Auto 7.7 % (3-14); Neutrophils Absolute Auto 6800 /uL (1500-7000); Neutrophils Percent Auto 66.3 % (50-75); Platelet Count 191 X10^3/uL (150-400); Red Blood Cell Count 3.26 X10^6/uL (4.0-5.2); White Blood Cell Count 10.3 X10^3/uL (4.5-11.0)
[2019-07-19 05:11] LABS: BUN Creatinine Ratio 21.7 (6-22); Blood Urea Nitrogen 26 mg/dL (7-17); Calcium 9.2 mg/dL (8.4-10.2); Carbon Dioxide 32 mmol/L (22-32); Chloride 101 mmol/L (98-107); Estimated Glomerular Filt Rate 43.2 mL/min (>60); Glucose 109 mg/dL (80-110); HEMOLYSIS < 15 (0-50); Potassium 4.5 mmol/L (3.4-5.1); Sodium 137 mmol/L (137-145)
[2019-07-19] MEDS: HYDROCODONE/ACET 5/325 TABLET 2 TAB PO (05:40)
--- NOTE | 2019-07-19 05:48 | PC.NURSE ---
Dressing on back saturated and draining into briefs, changed.
[2019-07-19 05:56] LABS: TSH w/ Reflex to FT4 1.56 uIU/mL (0.47-4.68)
--- NOTE | 2019-07-19 07:28 | P.PN_ITS ---
Subjective Subjective Date Patient Seen: 07/19/19 Time Patient Seen: 07:29 Interval history: Hospital day 4, postop day 3 following L3-4 through L5-S1 laminectomy and L4-5, L5-S1 TLIF. Patient is orthopedically stable. She did help cough and hypoxia and hypotension during the past 48 hours. She did have hospitalist consult done by Dr. Esposito yesterday. Echocardiogram done. Did have mild elevation of troponin and BNP. Cardiac medications were held. Patient did work with PT and OT yesterday. PT fell patient was stable for home. OT felt patient may need further assist. She did require dressing to be changed during the night because of saturation and mild drainage from the a upper left incision. Vital stable. Exam Vital Signs (past 8 hours): - 07/19/19 00:27 07/19/19 04:00 Temperature 97.9 F 97.6 F Pulse Rate 73 73 Respiratory Rate 16 16 Blood Pressure 116/55 L 113/60 Pulse Oximetry 92 96 Fraction of Inspired Oxygen 28 Oxygen Delivery Method BiPAP Oxygen Flow Rate 2 Narrative Exam Narrative: Patient is lying in bed sleeping but is easily arousable. Using CPAP with O2 bleed. Back. Dressing to lumbar area is dry without drainage or inflammation. Legs. No calf pain or swelling. Pulses symmetrical. Objective Labs Result Diagrams: 07/19/19 04:35 07/19/19 04:35 Labs: Laboratory Results - last 24 hr 07/18/19 07/18/19 07/18/19 10:00 10:42 10:42 WBC 11.7 H RBC 3.52 L Hgb 10.2 L Hct 32.0 L MCV 90.8 MCH 29.1 MCHC 32.0 RDW 14.9 H Plt Count 207 Neut % (Auto) 72.8 Lymph % (Auto) 11.2 L [place] % (Auto) 7.8 Eos % (Auto) 7.9 H Baso % (Auto) 0.3 Neut # (Auto) 8500 H Lymph # (Auto) 1300 [place] # (Auto) 900 Eos # (Auto) 900 H Baso # (Auto) 0 Sodium 135 L Potassium 3.9 Chloride 98 Carbon Dioxide 30 BUN 30 H Creatinine 1.50 H Estimated GFR 33.4 L BUN/Creatinine Ratio 20.0 Glucose 138 H Calcium 8.6 Magnesium Total Bilirubin 0.4 AST 111 H ALT 22 Alkaline Phosphatase 73 Troponin I 0.126 H* B-Natriuretic Peptide 200 H Total Protein 6.1 L Albumin 3.2 L Globulin 2.9 Albumin/Globulin Ratio 1.1 TSH 07/18/19 07/19/19 07/19/19 17:45 04:35 04:35 WBC 10.3 RBC 3.26 L Hgb 9.8 L Hct 29.3 L MCV 90.1 MCH 30.0 MCHC 33.3 RDW 15.0 H Plt Count 191 Neut % (Auto) 66.3 Lymph % (Auto) 15.6 L [place] % (Auto) 7.7 Eos % (Auto) 9.6 H Baso % (Auto) 0.8 Neut # (Auto) 6800 Lymph # (Auto) 1600 [place] # (Auto) 800 Eos # (Auto) 1000 H Baso # (Auto) 100 Sodium 137 Potassium 4.5 Chloride 101 Carbon Dioxide 32 BUN 26 H Creatinine 1.20 H Estimated GFR 43.2 L BUN/Creatinine Ratio 21.7 Glucose 109 Calcium 9.2 Magnesium 2.0 Total Bilirubin AST ALT Alkaline Phosphatase Troponin I 0.095 H B-Natriuretic Peptide Total Protein Albumin Globulin Albumin/Globulin Ratio TSH 07/19/19 04:35 WBC RBC Hgb Hct MCV MCH MCHC RDW Plt Count Neut % (Auto) Lymph % (Auto) [place] % (Auto) Eos % (Auto) Baso % (Auto) Neut # (Auto) Lymph # (Auto) [place] # (Auto) Eos # (Auto) Baso # (Auto) Sodium Potassium Chloride Carbon Dioxide BUN Creatinine Estimated GFR BUN/Creatinine Ratio Glucose Calcium Magnesium Total Bilirubin AST ALT Alkaline Phosphatase Troponin I B-Natriuretic Peptide Total Protein Albumin Globulin Albumin/Globulin Ratio TSH 1.56 Assessment & Plan Post-op Postoperative Procedures: Procedures Operation Date: 07/16/19 07:45 Actual Procedures Side Surgeon p L3-S1 laminectomies,L4-S1 instrumented fusion w/bone graft Efra Gifford MD Plan: Patient appears to be orthopedically stable. She does have a significant other and her daughters that will be helping her at home. Will wait on discharge pending further evaluation and clearance by medical. Quality VTE Deep Vein Thrombosis/Pulmonary Embolism Present on Admission: No
[2019-07-19 08:30] VITALS: BP 137/65; PULSE 74; RESP 18; TEMP 36.4; O2SAT 96
[2019-07-19] MEDS: LOSARTAN 50 MG TABLET 100 MG PO (09:23)
[2019-07-19] MEDS: DOCUSATE 100 MG CAPSULE PO (09:23)
[2019-07-19] MEDS: CHLORTHALIDONE 25 MG TABLET PO (09:24)
[2019-07-19] MEDS: ATENOLOL 25 MG TABLET PO (09:24)
[2019-07-19] MEDS: CELECOXIB 200 MG CAPSULE PO (09:24)
[2019-07-19] MEDS: FLUoxetine 20 MG CAPSULE PO (09:24)
[2019-07-19] MEDS: GABAPENTIN 300 MG CAPSULE PO (09:24)
[2019-07-19] MEDS: SODIUM CHLORIDE 0.9% FLUSH 10 ML IV (09:24)
[2019-07-19] MEDS: MAGNESIUM HYDROXIDE 30 ML UDC PO (09:25)
--- NOTE | 2019-07-19 09:46 | P.PN_ITS ---
Subjective Subjective Date Patient Seen: 07/19/19 Interval history: Patti Mullen is an 79-year-old female with past medical history significant for CAD, hypertension, hyperlipidemia, diabetes mellitus type 2, non-insulin using and diet-controlled (hemoglobin A1c 6.6%), and JACOB not on CPAP who postoperative day #3 after L4-5 and L5-S1 lumbar fusion with L3-S1 laminectomies in which the medicine team was consulted for acute hypoxemic respiratory failure. The patient is resting in bedside chair comfortably. She has no complaints other than mild pruritus at operative site related to adhesive from bandage. She denies shortness of breath, wheezing or cough. She feels well rested and reports more energetic after using CPAP last night. She endorses mild headache and chest pain that is reproducible with palpation that she is believes is due to a strap used during the operation. She has no other complaints and denies sore throat, abdominal pain, nausea, vomiting, fever, chills, dysuria, or diarrhea. She has not had a bowel movement since admission and believes her last bowel movement was on 07/15. She is voiding without difficulty. She is up ambulating with assistance. Exam Vital Signs (past 8 hours): - 07/19/19 04:00 07/19/19 08:30 Temperature 97.6 F 97.6 F Pulse Rate 73 74 Respiratory Rate 16 18 Blood Pressure 113/60 137/65 Pulse Oximetry 96 96 Fraction of Inspired Oxygen 28 Oxygen Delivery Method Room Air Oxygen Flow Rate 0 Narrative Exam Narrative: General: Elderly female sitting in bedside chair and in no acute distress, well-developed, well-nourished, appropriately interactive. HEENT: Normocephalic, atraumatic. External ears without defect. Pupils equal, round, and reactive to light. Anicteric sclerae, moist conjunctivae, and no lid lag. Oropharynx free of erythema and cobble stoning with moist mucosa. Poor dentition. Neck: Supple with full range of motion. No jugular venous distension. No lymphadenopathy or thyromegaly. Cardiovascular: Heart sounds distant but appears to be regular rate and rhythm without murmurs, rubs, or gallops appreciated. Pulmonary: Clear to auscultation bilaterally without crackles, wheezes, or rhonchi. Normal respiratory effort with no use of accessory muscles. Abdomen: Soft, obese, bowel sounds present, nontender, nondistended. No hepatosplenomegaly or masses appreciated. Back: Dressing in place C/D/I. Extremities: No clubbing, cyanosis, or edema. Skin: Normal temperature, turgor, and texture; no rash, ulcers, or subcutaneous nodules appreciated. Neurological: Cranial nerves grossly intact. Psychiatric: Normal mood and affect. Alert and oriented to person, place, and time. Objective Labs Result Diagrams: 07/19/19 04:35 07/19/19 04:35 Labs: Laboratory Results - last 24 hr 07/18/19 07/18/19 07/18/19 10:00 10:42 10:42 WBC 11.7 H RBC 3.52 L Hgb 10.2 L Hct 32.0 L MCV 90.8 MCH 29.1 MCHC 32.0 RDW 14.9 H Plt Count 207 Neut % (Auto) 72.8 Lymph % (Auto) 11.2 L [place] % (Auto) 7.8 Eos % (Auto) 7.9 H Baso % (Auto) 0.3 Neut # (Auto) 8500 H Lymph # (Auto) 1300 [place] # (Auto) 900 Eos # (Auto) 900 H Baso # (Auto) 0 Sodium 135 L Potassium 3.9 Chloride 98 Carbon Dioxide 30 BUN 30 H Creatinine 1.50 H Estimated GFR 33.4 L BUN/Creatinine Ratio 20.0 Glucose 138 H Calcium 8.6 Magnesium Total Bilirubin 0.4 AST 111 H ALT 22 Alkaline Phosphatase 73 Troponin I 0.126 H* B-Natriuretic Peptide 200 H Total Protein 6.1 L Albumin 3.2 L Globulin 2.9 Albumin/Globulin Ratio 1.1 TSH 07/18/19 07/19/19 07/19/19 17:45 04:35 04:35 WBC 10.3 RBC 3.26 L Hgb 9.8 L Hct 29.3 L MCV 90.1 MCH 30.0 MCHC 33.3 RDW 15.0 H Plt Count 191 Neut % (Auto) 66.3 Lymph % (Auto) 15.6 L [place] % (Auto) 7.7 Eos % (Auto) 9.6 H Baso % (Auto) 0.8 Neut # (Auto) 6800 Lymph # (Auto) 1600 [place] # (Auto) 800 Eos # (Auto) 1000 H Baso # (Auto) 100 Sodium 137 Potassium 4.5 Chloride 101 Carbon Dioxide 32 BUN 26 H Creatinine 1.20 H Estimated GFR 43.2 L BUN/Creatinine Ratio 21.7 Glucose 109 Calcium 9.2 Magnesium 2.0 Total Bilirubin AST ALT Alkaline Phosphatase Troponin I 0.095 H B-Natriuretic Peptide Total Protein Albumin Globulin Albumin/Globulin Ratio TSH 07/19/19 04:35 WBC RBC Hgb Hct MCV MCH MCHC RDW Plt Count Neut % (Auto) Lymph % (Auto) [place] % (Auto) Eos % (Auto) Baso % (Auto) Neut # (Auto) Lymph # (Auto) [place] # (Auto) Eos # (Auto) Baso # (Auto) Sodium Potassium Chloride Carbon Dioxide BUN Creatinine Estimated GFR BUN/Creatinine Ratio Glucose Calcium Magnesium Total Bilirubin AST ALT Alkaline Phosphatase Troponin I B-Natriuretic Peptide Total Protein Albumin Globulin Albumin/Globulin Ratio TSH 1.56 Assessment & Plan Assessment & Plan narrative: Patti Mullen is an 79-year-old female with past medical history significant for CAD, hypertension, hyperlipidemia, diabetes mellitus type 2, non-insulin using and diet-controlled (hemoglobin A1c 6.6%), and JACOB not on CPAP who postoperative day #3 after L4-5 and L5-S1 lumbar fusion with L3-S1 laminectomies in which the medicine team was consulted for acute hypoxemic respiratory failure. 1. Acute hypoxemic respiratory failure, not present on admission. Resolved. -Likely secondary to volume overload and diastolic dysfunction versus atelectasis causing hypoxemia. According to her primary care notes which are scanned into the computer she previously had an echo in February of 2019 which was unremarkable. She had a stress test in May which showed an apical defect con sistent with prior SD, this is consistent with her EKG findings as well. She is, given this history, high risk for postoperative SD. The patient does have chest pain that is reproducible and her EKG is unchanged from prior exam. Troponin elevated at 0.126 and now trending down to 0.095 today. Infectious etiology unlikely as no focal consolidation on chest x-ray and no signs or symptoms of infection. PE is also in differential but less likely given clinical situation. -BNP indeterminant at 200. -TSH within normal limits. -Previous TTE 02/2019 showing pseudonormalization pattern with repeat limited echocardiogram continuing to demonstrate preserved ejection fraction 70%. -Patient did not receive diuresis as blood pressure was low normal. -Continue to encourage incentive spirometer use. -Continue to monitor closely on telemetry. -Continue supplemental oxygen as necessary to maintain oxygen saturation 88-92%. Now off of oxygen and saturating in high 90's. 2. Recent L4-L5 and L5-S1 fusion with L3 through S1 laminectomies, present on admission. Stable. -Continue postoperative, DVT and pain management per Ortho. -Patient has not had a BM since admission and recommend implementing bowel regimen. 3. Acute kidney injury on chronic kidney disease stage III, not present on admission. Acute kidney injury resolved. -Baseline creatinine 1.1-1.2. Creatinine elevated to 1.5 on 07/18/2019 and has now returned to normal at 1.2. Possibly secondary to volume overload and congestion. -Continue to avoid nephrotoxic agents. -Continue to monitor creatinine daily. 4. CAD, chronic, present on admission. Stable. -Patient has previous SD documented on stress testing with a fixed apical defect noted earlier this year. No prior left heart catheterization. Previous TTE in feb, 2019 showed normal systolic and grade II diastolic dysfunction (pseudonormalization pattern). -Continue simvastatin 40 mg. -Start aspirin 81 mg daily as soon as able post operatively as recommended by PMD per chart review. 5. HFpEF, possibly with acute exacerbation present on admission. Resolved. -Previous TTE 02/2019 showing pseudonormalization pattern with repeat limited echocardiogram continuing to demonstrate preserved ejection fraction 70%. -Patient does not appear to be overtly fluid overloaded today and questionable whether the patient was fluid overloaded or had atelectasis causing hypoxemia as above. -Patient did not receive diuresis as blood pressure was low normal. 6. Hypertension, chronic, present on admission. Stable. -Patient is no longer mildly hypotensive with blood pressure normalizing. -May resume home regimen of antihypertensives. 7. Hypothyroidism, chronic, present on admission. Stable. -TSH normal at 1.56. -Continue levothyroxine 88 mcg daily. 8. Obstructive sleep apnea, chronic, present on admission. Stable. -Recommended updated sleep study and re-implementation of CPAP. Thank you for this most interesting consult. We will sign off at this time but feel free to consult our services if any further need arises. Quality VTE Deep Vein Thrombosis/Pulmonary Embolism Present on Admission: No
--- NOTE | 2019-07-19 10:01 | CM.DPC ---
Addendum entered by Radha Hernandez LPN 07/19/19 10:21: Checked in with pt now as planned. [employer] ENGINEER Ayaka was in the room and confirmed that pt did much better this morning in her session. Pt confirms her plan for the home setting. Says her partner Adalberto is now going to take more time off and will be with her as much as she needs. Her daughters have both left for home and will not be involved in the home caregiving. RN Efrain is updated. She confirms that ASHER Richard is not concerned re dressing draining and she expects that once he has the message that hospitalist team has signed off he will put in the d/c order. P: home today with Adalberto's support. Waiting for final d/c order from ASHER Richard. Original Note: DCP: continued: case discussed in Team Rounds. Dr. Escoto states pt was stable for sign off from the hospitalist consult service. Ortho ASHER Richard's progress note is reviewed and is a bit unclear if pt is ready for d/c today. PT team noted in rounds that they have some concerns about pt's ability to manage at home. OT and PT notes of yesterday afternoon are reviewed. Payer is [facility] for a planned surgery so is very uncertain in an auth for snf is possible. Yesterday pt had refused to consider a snf setting in discussion with this DCPlanner. P: have left a vm on cell for ASHER Richard to obtain some clarity re his d/c plan. Do note that the dressing was draining copiously early this morning/see RN note of about 0500. Will talk more with pt now and proceed accordingly.
--- NOTE | 2019-07-19 11:08 | PT.IPTN ---
Current Diagnoses Spondylolisthesis, lumbar region (07/16/19) Spinal stenosis, lumbar region with neurogenic claudication (07/16/19) Surgery Performed Operation Date: 07/16/19 07:45 Actual Procedures p L3-S1 laminectomies,L4-S1 instrumented fusion w/bone graft - Efra Gifford MD Physical Therapy Treatment Note M2 PT-IP Current Condition Start: 07/17/19 14:40 Freq: NEEDED Status: Active Protocol: Document 07/17/19 09:00 [facility] (Rec: 07/17/19 15:08 [facility] [id number]) Physical Therapy Current Condition Current Condition Evaluation Date 07/17/19 Treatment Diagnosis L4-5, L5-S1 TLIF Precautions Lumbar Precautions Log Roll,No Twisting,Limit Bending,Lifting Restriction of 10 lbs,Gait Belt above Incisional Area M3 PT-IP Subjective Start: 07/17/19 14:40 Freq: NEEDED Status: Active Protocol: Document 07/19/19 10:45 [facility] (Rec: 07/19/19 11:08 SP [id number]) Subjective Physical Therapy Visit Type Type Treatment Note Visit Start Time 09:55 Visit Stop Time 10:45 Total Visit Minutes 50 Physical Therapy Visit Comments Patient Comments Pt willing to work with therapy. Therapy Pain Assessment Pain Present Pain Present Denied Pain M4 PT-IP Mobility and Gait Start: 07/17/19 14:40 Freq: NEEDED Status: Active Protocol: Document 07/19/19 10:45 [facility] (Rec: 07/19/19 11:08 SP [id number]) PT-Transfer Assessment Sit to and From Stand Sit to and from Stand Contact Guard Assistance,Use of Upper Extremities Equipment Transfer Assistive Device Front Wheeled Walker Orthotic/Prosthetic Devices or Brace: No Transfers Transfer Destination Chair,Toilet,Wheelchair Transfer Technique Stand Pivot Transfer Ability Level of Assist Contact Guard Assistance,Use of Upper Extremities Comments Mobility Comments needed min cues for hand placement, body and FWW spacial awareness backing up to chair or w/c. Gait Assessment Gait Gait Assistance Required: Contact Guard Assist Distance (Feet) 40 Assistive Devices Assistive Device Gait Belt,Front Wheeled Walker Orthotic/Prosthetic Devices or Brace: No Gait Deviations General Gait Pattern Antalgic,Decreased Stride Length Factors Limiting Gait Function Factors Limiting Gait Function Decreased Activity Tolerance, Decreased Strength,Poor Safety Awareness Comments Gait Comments needed cues for safety with hand placement and body spacial awareness. Able to self recovery over wt shift during forward/backward/side step exercises. Pt slight SOB post stair mgt but recovered < 30 sec, pulse oximeter unavailable, 92-96% on room air. Stair Climbing Assessment Evaluation Level of Assist On Stairs Contact Guard Assistance Devices Stair Climbing Assistive Devices Left Railing,Right Railing Technique/Endurance Stair Climbing Direction Ascend and Descend Stair Climbing Technique Step to Step Number of Steps Climbed 6 Stair Climbing Set # Repetitions (reps) 1 Comments Stair Climbing Comments Pt requested which foot to lead up/down. 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 M5 PT-IP Objective Assessments Start: 07/17/19 14:40 Freq: NEEDED Status: Active Protocol: Document 07/17/19 09:00 [facility] (Rec: 07/17/19 15:08 [facility] [id number]) Orientation Orientation/Cognition Level of Alertness Alert Strength Lower Extremity Strength Assessment Right Impaired M6 PT-IP Treatment Start: 07/17/19 14:40 Freq: NEEDED Status: Active Protocol: Document 07/19/19 10:45 [facility] (Rec: 07/19/19 11:08 SP [id number]) Physical Therapy Treatment Other Treatments Other Treatment Performed Standing march in place 2x10, forward/backward/side stepping with FWW CGA no LOB, Min cued for spacial and obstacle awareness. M7 PT-IP Assessment and Plan Start: 07/17/19 14:40 Freq: NEEDED Status: Active Protocol: Document 07/19/19 10:45 [facility] (Rec: 07/19/19 11:08 SP [id number]) PT Summary Assessment and Plan Summary Assessment Summary Pt educated on safety awareness of hand placement during transfers and obstacles management during gait. Frequency of Treatment Frequency Of Treatment Twice a Day Treatment Plan Physical Therapy Treatment Plan Bed Mobility Training,Transfer Training,Gait Training, Therapeutic Exercise,Balance Retraining,Post Op Education, Discharge Planning, Neuromuscular Re-ed,Manual Therapy Other Recommendations and Next Treatment Caregiver training with Focus this afternoon on transfers, gait, stair mgt. Recommendations To Nursing Amount of Assist Needed 1 Person Assist Discharge Recommendations PT Discharge Recommendations Home with Assistance, Outpatient PT
[2019-07-19 12:05] VITALS: BP 112/44; PULSE 70; RESP 14; TEMP 36.6; O2SAT 93
[2019-07-19] MEDS: POLYETHYLENE GLYCOL 3350 17 GM POWD.PACK PO (12:43)
--- NOTE | 2019-07-19 12:44 | PC.NURSE ---
Spoke with ASHER Richard. Reported hospitalist signed off case. Pt wants to know when she may d/c. PA states he will place d/c orders later this afternoon. Updated pt.
--- NOTE | 2019-07-19 12:52 | OT.IP.TRT ---
Current Diagnoses Spondylolisthesis, lumbar region (07/16/19) Spinal stenosis, lumbar region with neurogenic claudication (07/16/19) Surgery Performed Operation Date: 07/16/19 07:45 Actual Procedures p L3-S1 laminectomies,L4-S1 instrumented fusion w/bone graft - Efra Gifford MD Occupational Therapy Treatment Note M2 OT-IP Current Condition Start: 07/17/19 18:18 Freq: Status: Active Protocol: Document 07/17/19 14:35 [facility] (Rec: 07/17/19 18:34 [facility] [id number]) Occupational Therapy Current Condition Current Condition Evaluation Date 07/17/19 Treatment Diagnosis L4-5,L5-S1 TLIF, L3-4, L4-5, l5-S1 laminectomies, l4, l5, S1 screws Diagnosis Onset Date 07/16/19 Post Operative Precautions Lumbar Precautions Log Roll,No Twisting,Limit Bending,Lifting Restriction of 10 lbs,Gait Belt above Incisional Area Weight Bearing Status Weight Bearing Status Weight Bear as Tolerated M3 OT- IP Subjective and Pain Start: 07/17/19 18:18 Freq: Status: Active Protocol: Document 07/19/19 12:39 [facility] (Rec: 07/19/19 12:51 [facility] [id number]) OT- Subjective Occupational Therapy Visit Type Type Treatment Note Visit Start Time 10:49 Visit Stop Time 11:39 Total Visit Minutes 50 Occupational Therapy Visit Comments Patient Comments Pt wanting to shower. Patient/Caregiver Goals To go home. OT Pain Assessment Pain When Pain Assessed At Rest Pain Present Pain Present Denied Pain M4 OT- IP ADL's Start: 07/17/19 18:18 Freq: Status: Active Protocol: Document 07/19/19 12:39 [facility] (Rec: 07/19/19 12:51 [facility] [id number]) OT ADL-Dressing General Eval Lower Body Dressing Ability Maximum Assistance Areas Needing Assistance Socks,Shoes Comments OT Dressing Comments Pt tired from the shower and needing assist to mauricio underwear and pants over her feet and to put on sandals. Pt able to stand with grab bar and pull up clothing over her hips. OT ADL-Toileting Comments OT Toileting Comments Pt states able to get bottom alton ( toilet aid)however brought it home so not able to practice with pt for hygiene needs. OT ADL-Bathing Bathing Type Bathing Type Shower General Evaluation Bathing Ability Moderate Assistance Areas Needing Assistance Wash/Dry Back,Wash/Dry Perineal Area,Wash/Dry Lower Extremities Devices Bathing Equipment Shower Chair without Arms,Grab Bars Comments OT Bathing Comments Pt O2 reading from 89-93% on RA while in the shower and needing assist for completeness for pericare needs, back and her feet. M5 OT- IP IADL's Start: 07/17/19 18:18 Freq: Status: Active Protocol: Document 07/17/19 14:35 [facility] (Rec: 07/17/19 18:34 [facility] [id number]) OT-Instrumental Activities of Daily Living Home Safety Awareness Home Safety Comments Pt's significant other to be present to assist for all IADL needs. M6 OT- IP Functional Cognition Start: 07/17/19 18:18 Freq: Status: Active Protocol: Document 07/19/19 12:39 [facility] (Rec: 07/19/19 12:51 [facility] [id number]) Cognitive Factors Limiting Selfcare Function Cognitive Ability Level of Alertness Alert Patient Orientation Name,Place,Situation Attention Span Ability Capable of Focused Attention, Capable of Sustained Attention Ability to Follow Commands Able to Follow Multi-Step Commands Safety Awareness Underestimates Need for Assistance Problem Solving Ability Needs Assist to Identify Solutions Cognitive Comments Cognitive Assessment Comments Pt did better with safety awareness today from poor to fair and better awareness and balance for her feet. In addition pt was wearing sandals today. Pt able to states all back precautions. Pt aware would be beneficial to do outpt PT once cleared from back surgeon. M7 OT- IP Mobility and Balance Start: 07/17/19 18:18 Freq: Status: Active Protocol: Document 07/19/19 12:39 [facility] (Rec: 07/19/19 12:51 [facility] [email or web address]) OT-Transfer Assessment Sit to and From Stand Sit to and from Stand Standby Assistance,Contact Guard Assistance,Minimal Assistance Transfers Transfer Ability Standby Assistance,Contact Guard Assistance Technique Transfer Destination Chair,Shower Stall Transfer Technique Stand Step Pivot Devices Transfer Assistive Devices Gait Belt,Front Wheeled Walker Comments Mobility Comments Pt needing RANDALL from lower surfaces to stand. Steadier on her feet today with no loss of balance. OT- Balance Assessment Sitting Balance and Reactions Static Sitting Balance Ability Normal Dynamic Sitting Balance Ability Good Standing Balance and Reactions Static Standing Balance Ability Fair M8 OT- IP Objective Assessments Start: 07/17/19 18:18 Freq: Status: Active Protocol: Document 07/17/19 14:35 [facility] (Rec: 07/17/19 18:34 [facility] [id number]) OT Gross Range of Motion Upper Extremity Range of Motion Assessment Within Functional Limits OT Strength Upper Extremity Strength Assessment Within Functional Limits M9 OT- IP Assessment and Plan Start: 07/17/19 18:18 Freq: Status: Active Protocol: Document 07/19/19 12:39 [facility] (Rec: 07/19/19 12:51 [facility] [id number]) OT Summary Assessment and Plan Potential Rehabilitation Potential Good Analytic Complexity at Evaluation Low Summary Assessment Summary Pt doing better overall with her balance, O2 reading and endurance and able to tolerate showering and dressing today. Recommend home with family to assist 24/ initially due to risk of falls. Goals Days to Meet Goals 1 Frequency of Treatment Frequency Of Treatment Once a Day Discharge Recommendations OT Discharge Recommendations Home with 24/7 Assist Home Equipment Needs shower chair, RTS/BSC, bed rail, toilet paper aid
--- NOTE | 2019-07-19 15:30 | PT.IPTN ---
Current Diagnoses Spondylolisthesis, lumbar region (07/16/19) Spinal stenosis, lumbar region with neurogenic claudication (07/16/19) Surgery Performed Operation Date: 07/16/19 07:45 Actual Procedures p L3-S1 laminectomies,L4-S1 instrumented fusion w/bone graft - Efra Gifford MD Physical Therapy Treatment Note M2 PT-IP Current Condition Start: 07/17/19 14:40 Freq: NEEDED Status: Active Protocol: Document 07/17/19 09:00 [facility] (Rec: 07/17/19 15:08 [facility] [id number]) Physical Therapy Current Condition Current Condition Evaluation Date 07/17/19 Treatment Diagnosis L4-5, L5-S1 TLIF Precautions Lumbar Precautions Log Roll,No Twisting,Limit Bending,Lifting Restriction of 10 lbs,Gait Belt above Incisional Area M3 PT-IP Subjective Start: 07/17/19 14:40 Freq: NEEDED Status: Active Protocol: Document 07/19/19 15:30 [facility] (Rec: 07/19/19 15:47 SP [id number]) Subjective Physical Therapy Visit Type Type Treatment Note Visit Start Time 15:10 Visit Stop Time 15:30 Total Visit Minutes 20 Notes Caregiver trng with on gait, transfers, stair mgt. 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 Therapy Pain Assessment Pain Present Pain Present Denied Pain M4 PT-IP Mobility and Gait Start: 07/17/19 14:40 Freq: NEEDED Status: Active Protocol: Document 07/19/19 15:30 SP (Rec: 07/19/19 15:47 SP [id number]) PT-Bed Mobility Assessment Rolling Type of Rolling Roll to Left Level of Assist Standby Assistance Supine to Sit Supine to Sit Standby Assistance,Bedrails Sit to Supine Sit to Supine Standby Assistance Scooting Scooting to Edge of Bed Standby Assistance PT-Transfer Assessment Sit to and From Stand Sit to and from Stand Contact Guard Assistance,Use of Upper Extremities Equipment Transfer Assistive Device Front Wheeled Walker Orthotic/Prosthetic Devices or Brace: No Transfers Transfer Destination Wheelchair Transfer Technique Stand Pivot Comments Mobility Comments fair hand placement and fww management. Gait Assessment Gait Gait Assistance Required: Standby Assistance Distance (Feet) 130 Assistive Devices Assistive Device Gait Belt,Front Wheeled Walker Gait Deviations General Gait Pattern Within Normal Limits Factors Limiting Gait Function Factors Limiting Gait Function Decreased Activity Tolerance, Decreased Strength Comments Gait Comments Pt made improvements in gait and safety with transfers. Pt worked well with caregiver training for transfer, gait, stair management. Stair Climbing Assessment Evaluation Level of Assist On Stairs Contact Guard Assistance Devices Stair Climbing Assistive Devices Left Railing,Right Railing Technique/Endurance Stair Climbing Direction Ascend and Descend Stair Climbing Technique Step to Step Number of Steps Climbed 3 Stair Climbing Set # Repetitions (reps) 1 Comments Stair Climbing Comments Pt had good step to patterning / sequencing with LHR gripping , R HR downward pressure as does at home on R side mailbox . Unable to do with 1 HR. M5 PT-IP Objective Assessments Start: 07/17/19 14:40 Freq: NEEDED Status: Active Protocol: Document 07/17/19 09:00 [facility] (Rec: 07/17/19 15:08 [facility] [id number]) Orientation Orientation/Cognition Level of Alertness Alert Strength Lower Extremity Strength Assessment Right Impaired M6 PT-IP Treatment Start: 07/17/19 14:40 Freq: NEEDED Status: Active Protocol: Document 07/19/19 10:45 SP (Rec: 07/19/19 11:08 SP [id number]) Physical Therapy Treatment Other Treatments Other Treatment Performed Standing march in place 2x10, forward/backward/side stepping with FWW CGA no LOB, Min cued for spacial and obstacle awareness. M7 PT-IP Assessment and Plan Start: 07/17/19 14:40 Freq: NEEDED Status: Active Protocol: Document 07/19/19 15:30 SP (Rec: 07/19/19 15:47 SP [id number]) PT Summary Assessment and Plan Summary Assessment Summary Pt has made gains in strength, endurance and increased safety with BM, transfers, gait and stair management.no LOB or deviations. Frequency of Treatment Frequency Of Treatment Twice a Day Treatment Plan Physical Therapy Treatment Plan Bed Mobility Training,Transfer Training,Gait Training, Therapeutic Exercise,Balance Retraining,Post Op Education, Discharge Planning, Neuromuscular Re-ed,Manual Therapy Other Recommendations and Next Treatment Caregiver training with Focus this afternoon on transfers, gait, stair mgt. Recommendations To Nursing Amount of Assist Needed 1 Person Assist Discharge Recommendations PT Discharge Recommendations Home with Assistance, Outpatient PT
[2019-07-19 15:39] VITALS: BP 115/44; PULSE 72; RESP 20; TEMP 36.5; O2SAT 95
--- NOTE | 2019-07-19 17:21 | PM.DS.1 ---
History of Present Illness History of Present Illness Date Patient Seen: 07/19/19 Time Patient Seen: 17:22 Chief complaint: Translaminar Interbody Fusion/:Laminotomy Narrative: Hospital day 4, postop day 3 following L3-4 through L5-S1 laminectomy; L4-5, L5-S1 TLIF, cage and posterior screws. Patient has remained stable. She did have repeat TTE which was stable. Was seen by hospitalist today with patient doing better with the out complain of shortness of breath or cough. Patient was signed off by hospitalist. She feels stable and ready to go home today. Discharge Providers Provider Date of admission: 07/16/19 06:05 Discharge Date: 07/19/19 Primary care physician: Izabel Stapleton MD Consults: 07/09/19 13:32 Consult to Respiratory Therapy Evaluate & Treat Comment: TLIF 07/16-JACOB, not wearing CPAP-smells like mold Physician Instructions: Evaluate and treat 07/16/19 07:19 Consult to Respiratory Therapy Evaluate & Treat Comment: Physician Instructions: Evaluate and treat 07/16/19 16:01 Consult to Occupational Therapy Evaluate & Treat Comment: Physician Instructions: Evaluate and treat Consult to Physical Therapy Evaluate & Treat Comment: Physician Instructions: Evaluate and Treat 07/18/19 09:06 Consult to Physician Urgent Comment: Consulting Provider: Emiliano Esposito Reason for consultation: cough,sputum, hypotension Has provider been notified: Yes Discharge provider: Emiliano Richard PA-C Summary Hospital Course Discharge Diagnosis: Status post L3-4 through L5-S1 laminectomy; L4-5, L5-S1 TLIF, cage, posterior screw fixation Acute hypoxemic respiratory failure resolved Hospital Course: Patient brought to hospital on 07/16/2019 for above noted surgery. She remained stable orthopedically. On postop day 2 she did have an increased cough with hypoxic episodes of desaturation requiring O2. She was evaluated by hospitalist with echo and TT stable. Her hypoxemia resolved. Blood pressure medications were held as she was having hypotensive episode. She was cleared by hospitalist on postop day 3 and ready for discharge to home. Status at Discharge Cognitive/behavioral status at discharge: oriented Functional status at discharge: uses cane/walker Overall status at discharge: patient is progressing back to baseline Time Spent with Patient Time spent: Less than 30 minutes Exam Vital Signs (past 8 hours): - 07/19/19 12:05 07/19/19 15:39 Temperature 97.8 F 97.7 F Pulse Rate 70 72 Respiratory Rate 14 20 Blood Pressure 112/44 L 115/44 L Pulse Oximetry 93 95 Fraction of Inspired Oxygen 28 Oxygen Delivery Method Room Air Oxygen Flow Rate 0 Narrative Exam Narrative: Alert, oriented no acute distress resting in bed. Back. Dressing to lumbar area is dry without drainage or inflammation. Objective Labs Result Diagrams: 07/19/19 04:35 07/19/19 04:35 Labs: Laboratory Results - last 24 hr 07/18/19 07/19/19 07/19/19 17:45 04:35 04:35 WBC 10.3 RBC 3.26 L Hgb 9.8 L Hct 29.3 L MCV 90.1 MCH 30.0 MCHC 33.3 RDW 15.0 H Plt Count 191 Neut % (Auto) 66.3 Lymph % (Auto) 15.6 L [place] % (Auto) 7.7 Eos % (Auto) 9.6 H Baso % (Auto) 0.8 Neut # (Auto) 6800 Lymph # (Auto) 1600 [place] # (Auto) 800 Eos # (Auto) 1000 H Baso # (Auto) 100 Sodium 137 Potassium 4.5 Chloride 101 Carbon Dioxide 32 BUN 26 H Creatinine 1.20 H Estimated GFR 43.2 L BUN/Creatinine Ratio 21.7 Glucose 109 Calcium 9.2 Magnesium 2.0 Troponin I 0.095 H TSH 07/19/19 04:35 WBC RBC Hgb Hct MCV MCH MCHC RDW Plt Count Neut % (Auto) Lymph % (Auto) [place] % (Auto) Eos % (Auto) Baso % (Auto) Neut # (Auto) Lymph # (Auto) [place] # (Auto) Eos # (Auto) Baso # (Auto) Sodium Potassium Chloride Carbon Dioxide BUN Creatinine Estimated GFR BUN/Creatinine Ratio Glucose Calcium Magnesium Troponin I TSH 1.56 Discharge Plan Discharge Plan Patient Disposition: Home Discharge comment: f/u 1.5 wks Discharge Med Rec/Prescriptions Prescriptions: New celecoxib [Celebrex] 200 mg Capsule 200 mg PO BID PRN (Reason: pain) Qty: 60 RF: 0 docusate sodium [Dulcolax Stool Softener (dss)] 100 mg capsule 100 mg PO BID PRN (Reason: constipation) Qty: 40 RF: 0 hydrocodone-acetaminophen 5-325 mg Tablet 1 tab PO Q4HR PRN (Reason: Pain, Moderate (4-6)) Qty: 30 RF: 0 hydroxyzine pamoate 25 mg Capsule 25 mg PO Q4HR PRN (Reason: spasms) Qty: 20 RF: 0 Continued pramipexole 1 mg Tablet 1 mg PO BEDTIME RF: 0 latanoprost 0.005 % Drops 1 drp EYE-BOTH BEDTIME RF: 0 chlorthalidone 25 mg Tablet 25 mg PO DAILY RF: 0 simvastatin 40 mg Tablet 40 mg PO BEDTIME RF: 0 gabapentin 300 mg Capsule 900 mg PO SEEINSTR RF: 0 losartan 100 mg Tablet 100 mg PO DAILY RF: 0 fluoxetine 20 mg Capsule 20 mg PO DAILY RF: 0 atenolol 50 mg Tablet 25 mg PO BID RF: 0 levothyroxine 88 mcg Capsule 88 mcg PO DAILY RF: 0 Follow up/Referrals: Izabel Stapleton MD [Primary Care Provider] - Provider Discharge Instructions Diet: Diet as Tolerated Activity: limited BLT 10 lbs. Ambulate as tolerated. Use walker as needed. No foot excessive bending or twisting of lumbar spine. Skin/Wound/Dressing Care Report to your healthcare provider any signs of infection, such as:: chills, fever, night sweats, increased pain, unusual drainage and unusual redness Dressing: may change dressing and shower POD#5 Visit Report/Discharge Packet Instructions: DI for Transforaminal Lumbar Interbody Fusion Stand Alone Forms: Surgery Discharge Discharge Data Primary Care Provider: Izabel Stapleton Quality VTE Deep Vein Thrombosis/Pulmonary Embolism Present on Admission: No
--- NOTE | 2019-07-19 18:00 | PC.NURSE ---
1800- IV cannula removed for discharge to home. Patient verbalizes understanding of discharge instruction. Patient significant other present when instruction given. Patient given printed perscriptions. Stable at the time of discharge.
== END 2019-07-19 18:00 | disposition home or self-care (01) | DRG 453 ==
LOC: AC 06:44 → ICU 11:45
PROVIDERS: Anesthesiology; Internal Medicine; Physician Assistant; Admitting Provider Orthopaedic Surgery; PCP Internal Medicine Geriatric Medicine; Visit Provider Orthopaedic Surgery
PROC: 0SG00AJ Fusion of Lumbar Vertebral Joint with Interbody Fusion Device, Posterior Approach, Anterior Column, Open Approach (ICD-10-PCS; principal; 2019-07-16 07:45)
DX: M48.062 Spinal stenosis, lumbar region with neurogenic claudication (principal); J96.01 Acute respiratory failure with hypoxia; I50.33 Acute on chronic diastolic (congestive) heart failure; N17.9 Acute kidney failure, unspecified; I13.0 Hypertensive heart and chronic kidney disease with heart failure and stage 1 through stage 4 chronic kidney disease, or unspecified chronic kidney disease; I24.8 Other forms of acute ischemic heart disease; M43.16 Spondylolisthesis, lumbar region; M41.86 Other forms of scoliosis, lumbar region; E66.9 Obesity, unspecified; F32.9 Major depressive disorder, single episode, unspecified; I25.10 Atherosclerotic heart disease of native coronary artery without angina pectoris; E11.9 Type 2 diabetes mellitus without complications; G47.33 Obstructive sleep apnea (adult) (pediatric); Z68.35 Body mass index [BMI] 35.0-35.9, adult; I95.9 Hypotension, unspecified; E87.70 Fluid overload, unspecified; E03.9 Hypothyroidism, unspecified; E11.22 Type 2 diabetes mellitus with diabetic chronic kidney disease; N18.3 Chronic kidney disease, stage 3 (moderate)
CPT/HCPCS: 36415; 36592; 71046; 72100; 76000; 80048; 80053; 82962; 83735; 83880; 84443; 84484; 85014; 85018; 85025; 93005; 93307; 94660; 94760; 94762; 97110; 97116; 97162; 97165; 97530; 97535; C1776; J0131; J0330; J0595; J0690; J1170; J2274; J2405; J2704; J3010